=== PATIENT | female | born 1990 | race African-American/Black ===

== ENCOUNTER 2016-05-25 13:04 | Emergency (ER) | payer SELFPAY ==
[~2016-05-25] VITALS: Ht 167.6 cm; Wt 90.7 kg
[~2016-05-25 13:04] MED LIST: CALC200T3 PO; FERR-26 PO; HYDR-971 PO; OMEP20TA63 PO; ONDA4TAB7 PO
[2016-05-25 13:33] VITALS: BP 148/93
[2016-05-25] MEDS ORDERED: HYDR-971 PO (14:10)
[2016-05-25] MEDS ORDERED: NAPR500T3 PO (14:10)
--- NOTE | 2016-05-25 14:10 | PHYS DOC ---
Past Medical History Past Medical History: No Pertinent History Past Surgical History: , Tubal ligation Alcohol Use: None Drug Use: None Adult General Chief Complaint Chief Complaint: PAIN CONTROL HPI HPI Patient is a 25 year old female who presents with moderate right ankle and foot pain that began 4 days ago. Patient states she fainted and rolled her ankle. She states she was seen at [facility] had x-rays done which were negative, she states she was discharged with cum walker boot. She states she has an appointment with the orthopedic doctor on Tuesday. She states she is currently is experiencing more pain, she also ran out of her pain medication. Review of Systems Review of Systems Constitutional: Denies fever or chills [] Musculoskeletal: Left ankle and foot pain Integument: Denies rash or skin lesions []ack pain or join Neurologic: Denies headache, focal weakness or sensory changes [] Endocrine: Denies polyuria or polydipsia [] Allergies Allergies Allergies Coded Allergies Type Severity Reaction Last Updated Verified latex Allergy Intermediate 10/10/15 Yes Physical Exam Physical Exam Constitutional: Well developed, well nourished, no acute distress, non-toxic appearance. [] HENT: Normocephalic, atraumatic, bilateral external ears normal, oropharynx moist, no oral exudates, nose normal. [] Skin: Warm, dry, no erythema, no rash. [] Back: No tenderness, no CVA tenderness. [] Extremities: Left ankle and foot with no obvious deformity, trace amount of soft tissue swelling noted on the left lateral ankle and foot. Tenderness on palpation of the left lateral ankle. Full range of motion to the left ankle and foot. No pain or tenderness on the base of the fifth metatarsal of the navicular bone of the left foot. +2 left pedal pulse. Cap refill less than 2 seconds and left lower extremity. Sensation intact to the left lower extremity. Neurologic: Alert and oriented X 3, normal motor function, normal sensory function, no focal deficits noted. [] Psychologic: Affect normal, judgement normal, mood normal. [] Current Patient Data Vital Signs Vital Signs Date Time Temp Pulse Resp B/P Pulse Ox O2 Delivery O2 Flow Rate FiO2 05/25/16 13:33 97.9 98 18 100 Room Air 97.9 EKG EKG [] Radiology/Procedures Radiology/Procedures [] Course & Med Decision Making Course & Med Decision Making Pertinent Labs and Imaging studies reviewed. (See chart for details) Patient is in the ED with ongoing left foot and ankle pain after falling on Tuesday. She was already seen at [facility] and was discharged with sherwin barone. She has an appointment with the orthopedic doctor on Tuesday. She was instructed to continue icing and elevating the extremity. Follow-up with orthopedic doctors scheduled. Dragon Disclaimer Dragon Disclaimer This electronic medical record was generated, in whole or in part, using a voice recognition dictation system. Departure Departure Impression: Primary Impression: Ankle pain, left Additional Impression: Foot pain, left Disposition: HOME, SELF-CARE Condition: STABLE Referrals: NO PCP (PCP) Follow-up with the orthopedic doctor at [facility] as soon as possible Patient Instructions: Ankle Pain Additional Instructions: You were seen for ongoing left foot and ankle pain. We recommend you follow-up with orthopedic doctor as soon as you can. Ice and elevate the extremity. Scripts Naproxen 500 Mg Tablet1 Tab PO BID #60 TAB Ref 1 Prov:ELEONORA WILSON APRN 05/25/16 Hydrocodone/Apap 5-325 ([place] 5-325 Tablet)1 Each Tablet1-2 Tab PO Q4-6HRS #7 TAB Prov:ELEONORA WILSON APRN 05/25/16 Problem Qualifiers Primary Impression: Ankle pain, left Chronicity: acute Qualified Code: M25.572 - Pain in left ankle and joints of left foot ELEONORA WILSON APRN May 25, 2016 14:10
== END 2016-05-25 14:17 | disposition home or self-care (01) ==
LOC: ER 13:04
DX: M25.572 Pain in left ankle and joints of left foot (principal); Z91.040 Latex allergy status
CPT/HCPCS: 99283

== ENCOUNTER 2016-07-12 15:08 | Emergency (ER) | payer OTHER ==
[~2016-07-12] VITALS: Ht 167.6 cm; Wt 90.7 kg
[~2016-07-12 15:08] MED LIST changes: +NAPR500T3 PO
[2016-07-12] MEDS ORDERED: ALBUTEROL SULFATE 2.5 MG/3 ML NEBU. NEB ONE (15:45)
[2016-07-12] MEDS ORDERED: IV NORMAL SALINE 1000ML BAG 1,000 ML IV ONE (15:45)
[2016-07-12] MEDS ORDERED: ONDANSETRON PF 4 MG/2 ML VIAL. IV ONE (15:45)
[2016-07-12] MEDS ORDERED: KETOROLAC TROMETHAMINE 30 MG/ML INJ. IV ONE (15:45)
[2016-07-12] MEDS ORDERED: ASPIRIN ENTERIC COATED 325 MG TABLET.DR. PO ONE (15:45)
[2016-07-12] MEDS ORDERED: oxyCODONE/APAP 5/325 1 TAB TABLET PO ONE (15:45)
[2016-07-12] MEDS ORDERED: LIDO:MAALOX:DONNATAL 1:1:1 15 ML SINGLE DOSE SWSW ONE (15:45)
--- NOTE | 2016-07-12 15:45 | EKG ---
[facility] [address] [place] [address] Test Date: 2016-07-12 Test Time: 15:20:37 Pat Name: RACHEL BUCKLEY Department: Room: Gender: F Medical Claims Examiner: : 1990 Requested By: SCAR LANCASTER Order Number: [id number] Reading MD: Radha Morgan Measurements Intervals [place] Rate: 83 P: 34 MT: 176 QRS: 32 QRSD: 88 T: -2 QT: 348 QTc: 409 Interpretive Statements SINUS RHYTHM NORMAL EKG RI6.01 Unconfirmed report Compared to ECG 08/08/2012 14:26:30 Sinus tachycardia no longer present Electronically Signed On 07-15-2016 22:25:22 CDT by Radha Morgan
[2016-07-12 16:02] LABS: BASO # 0.1 x10^3/uL (0.0-0.2); BASO % 1 % (0-3); EOS % 3 % (0-3); HEMATOCRIT 31.4 % (36.0-47.0); HEMOGLOBIN 9.4 g/dL (12.0-15.5); LYMPH # 2.2 x10^3/uL (1.0-4.8); LYMPH % 26 % (24-48); MEAN CORPUSCULAR HEMOGLOBIN 21 pg (25-35); MEAN CORPUSCULAR HGB CONC 30 g/dL (31-37); MEAN CORPUSCULAR VOLUME 70 fL (79-100); MONO % 8 % (0-9); NEUT % 62 % (31-73); PLATELET COUNT 393 x10^3/uL (140-400); RED BLOOD COUNT 4.47 x10^6/uL (3.50-5.40); RED CELL DISTRIBUTION WIDTH 21.8 % (11.5-14.5); WHITE BLOOD COUNT 8.5 x10^3/uL (4.0-11.0)
--- NOTE | 2016-07-12 16:14 | RAD ---
Indication chest pain. A single view of the chest was obtained. Comparison is made to an examination 10/07/2015. The heart and pulmonary vessels are unremarkable. The mediastinum has a normal appearance. The lungs are clear of acute infiltrates. There is a small nodular opacity in the right upper lobe similar to the previous exam. Overall a significant change in the appearance of the chest compared to the prior study is not seen. IMPRESSION: No acute finding. No significant change
--- NOTE | 2016-07-12 16:22 | PHYS DOC ---
Past Medical History Past Medical History: No Pertinent History Past Surgical History: , Tubal ligation Additional Information: 0.5 PPD Alcohol Use: None Drug Use: None Adult General Chief Complaint Chief Complaint: CHEST WALL PAIN HPI HPI Patient is a 26 year old female presenting to the emergency department for evaluation of chest pain cough dizziness and not feeling well. She says that she has been coughing hard for the past 1-2 weeks however she is not coughing anything up. Patient says that since 4:00 this morning. Patient says it is sharp in her left chest raise to her left back and is associated with movements of her torso breaths and cough. She denies any prior history of DVT PE or estrogen use unilateral leg swelling or productive cough. She has no history of hypertension diabetes or high cholesterol but she does smoke cigarettes and says her father has a history of cardiac disease. Patient's Perc score is equal to 0 and her heart score is equal to 2 based offers factors and slightly abnormal EKG. Review of Systems Review of Systems Constitutional: Denies fever or chills [] Eyes: Denies change in visual acuity, redness, or eye pain [] HENT: Denies nasal congestion or sore throat [] Respiratory: + cough. No shortness of breath [] Cardiovascular: + CP GI: Denies abdominal pain, nausea, vomiting, bloody stools or diarrhea [] : Denies dysuria or hematuria [] Musculoskeletal: Denies back pain or joint pain [] Integument: Denies rash or skin lesions [] Neurologic: Denies headache, focal weakness. + dizziness Current Medications Current Medications Current Medications Medications (Trade) Dose Ordered Sig/[facility] Start Time Stop Time Status Last Admin Dose Admin Albuterol Sulfate (Ventolin Neb Soln) 2.5 mg 1X ONCE 07/12/16 15:45 07/12/16 15:46 DC 07/12/16 16:09 2.5 MG Aspirin (Ecotrin) 325 mg 1X ONCE 07/12/16 15:45 07/12/16 15:46 DC 07/12/16 15:54 325 MG Ketorolac Tromethamine (Toradol) 30 mg 1X ONCE 07/12/16 15:45 07/12/16 15:46 DC 07/12/16 16:04 30 MG Multi-Ingredient Mouthwash/Gargle (Gi Cocktail Single Dose) 15 ml 1X ONCE 07/12/16 15:45 07/12/16 15:46 DC 07/12/16 15:56 15 ML Ondansetron HCl (Zofran) 8 mg 1X ONCE 07/12/16 15:45 07/12/16 15:46 DC 07/12/16 16:01 8 MG Oxycodone/ Acetaminophen (Percocet 5/325) 1 tab 1X ONCE 07/12/16 15:45 07/12/16 15:46 DC 07/12/16 15:55 1 TAB Sodium Chloride 1,000 ml @ 1,000 mls/hr 1X ONCE 07/12/16 15:45 07/12/16 16:44 DC 07/12/16 15:57 1,000 MLS/HR Allergies Allergies Allergies Coded Allergies Type Severity Reaction Last Updated Verified latex Allergy Intermediate 10/10/15 Yes Physical Exam Physical Exam Constitutional: Well developed, well nourished, no acute distress, non-toxic appearance. [] HENT: Normocephalic, atraumatic, bilateral external ears normal, oropharynx moist, no oral exudates, nose normal. [] Eyes: PERRLA, EOMI, conjunctiva normal, no discharge. [] Neck: Normal range of motion, no tenderness, supple, no stridor. [] Cardiovascular:Heart rate regular rhythm, no murmur [] Lungs & Thorax: Bilateral breath sounds clear to auscultation with pain to palpation of left chest and left back Abdomen: Bowel sounds normal, soft, no tenderness, no masses, no pulsatile masses. [] Skin: Warm, dry, no erythema, no rash. [] Back: No tenderness, no CVA tenderness. [] Extremities: No tenderness, no cyanosis, no clubbing, ROM intact, no edema. [] Neurologic: Alert and oriented X 3, normal motor function, normal sensory function, no focal deficits noted. [] Current Patient Data Vital Signs Vital Signs Date Time Temp Pulse Resp B/P (MAP) Pulse Ox O2 Delivery O2 Flow Rate FiO2 07/12/16 16:11 Room Air 07/12/16 15:55 29 98 07/12/16 15:20 98.4 83 92/45 (61) 98.4 Lab Values Laboratory Tests Test 07/12/16 15:45 07/12/16 16:48 White Blood Count 8.5 x10^3/uL (4.0-11.0) Red Blood Count 4.47 x10^6/uL (3.50-5.40) Hemoglobin 9.4 g/dL (12.0-15.5) L Hematocrit 31.4 % (36.0-47.0) L Mean Corpuscular Volume 70 fL (79-100) L Mean Corpuscular Hemoglobin 21 pg (25-35) L Mean Corpuscular Hemoglobin Concent 30 g/dL (31-37) L Red Cell Distribution Width 21.8 % (11.5-14.5) H Platelet Count 393 x10^3/uL (140-400) Neutrophils (%) (Auto) 62 % (31-73) Lymphocytes (%) (Auto) 26 % (24-48) Monocytes (%) (Auto) 8 % (0-9) Eosinophils (%) (Auto) 3 % (0-3) Basophils (%) (Auto) 1 % (0-3) Neutrophils # (Auto) 5.3 x10^3uL (1.8-7.7) Lymphocytes # (Auto) 2.2 x10^3/uL (1.0-4.8) Monocytes # (Auto) 0.7 x10^3/uL (0.0-1.1) Eosinophils # (Auto) 0.2 x10^3/uL (0.0-0.7) Basophils # (Auto) 0.1 x10^3/uL (0.0-0.2) Platelet Estimate Pending Sodium Level 136 mmol/L (136-145) Potassium Level 4.0 mmol/L (3.5-5.1) Chloride Level 103 mmol/L (98-107) Carbon Dioxide Level 21 mmol/L (21-32) Anion Gap 12 (6-14) Blood Urea Nitrogen 11 mg/dL (7-20) Creatinine 1.1 mg/dL (0.6-1.0) H Estimated GFR (Cockcroft-Gault) 71.6 BUN/Creatinine Ratio 10 (6-20) Glucose Level 171 mg/dL (70-99) H Calcium Level 8.6 mg/dL (8.5-10.1) Magnesium Level 1.7 mg/dL (1.8-2.4) L Total Bilirubin 0.4 mg/dL (0.2-1.0) Aspartate Amino Transferase (AST) 26 U/L (15-37) Alanine Aminotransferase (ALT) 15 U/L (14-59) Alkaline Phosphatase 95 U/L (46-116) Creatine Kinase 249 U/L (26-192) H Troponin I Quantitative < 0.017 ng/mL (0.000-0.055) EV-Qpr-O-Type Natriuretic Peptide 97 pg/mL (0-124) Total Protein 7.2 g/dL (6.4-8.2) Albumin 3.3 g/dL (3.4-5.0) L Albumin/Globulin Ratio 0.8 (1.0-1.7) L Lipase 108 U/L (73-393) Urine Color Yellow Urine Clarity Clear Urine pH 6.5 Urine Specific [place] 1.015 Urine Protein 30 mg/dL (NEG-TRACE) Urine Glucose (UA) Negative mg/dL (NEG) Urine Ketones (Stick) Negative mg/dL (NEG) Urine Blood Negative (NEG) Urine Nitrite Negative (NEG) Urine Bilirubin Negative (NEG) Urine Urobilinogen Dipstick 0.2 mg/dL (0.2 mg/dL) Urine Leukocyte Esterase Moderate (NEG) Urine RBC 0 /HPF (0-2) Urine WBC 5-10 /HPF (0-4) Urine Squamous Epithelial Cells Mod /LPF Urine Bacteria Few /HPF (0-FEW) Urine Mucus Slight /LPF Laboratory Tests 07/12/16 15:45 Laboratory Tests 07/12/16 15:45 EKG EKG Sinus rhythm at 83 bpm with normal axis mild ST elevation noted in V2 with inverted T waves in leads V2 and V3 and V4. Radiology/Procedures Radiology/Procedures Indication chest pain. A single view of the chest was obtained. Comparison is made to an examination 10/07/2015. The heart and pulmonary vessels are unremarkable. The mediastinum has a normal appearance. The lungs are clear of acute infiltrates. There is a small nodular opacity in the right upper lobe similar to the previous exam. Overall a significant change in the appearance of the chest compared to the prior study is not seen. IMPRESSION: No acute finding. No significant change DICTATED and SIGNED BY: DELANEY LOUIS MD DATE: 07/12/16 3804 Course & Med Decision Making Course & Med Decision Making Patient presenting to the emergency department for evaluation of chest pain that is atypical for cardiac disease. She has no signs or symptoms of dissection and her perk score is equal to 0. Patient was given symptomatically treatment here and she said her pain is almost resolved and is feeling better and asking to go home. Given her heart score is equal to 2 and her EKG and troponin are negative more than 6 hours out from onset of symptoms she'll be discharged in stable condition with instructions not to exert herself take an aspirin daily and follow with a primary care provider and/or patient case coordinator within the next any 2 hours and come back to the ER sooner with any worsening pain fevers vomiting or other general concerns. Dragon Disclaimer Dragon Disclaimer This electronic medical record was generated, in whole or in part, using a voice recognition dictation system. Departure Departure Impression: Primary Impression: Chest pain Additional Impressions: Anemia Dizziness Disposition: HOME, SELF-CARE Condition: GOOD Referrals: DORA AU MD Patient Instructions: Pleurisy Additional Instructions: Take 400 mg of ibuprofen every 6 hours and the [place] for breakthrough pain. Follow with a primary care provider and/or the patient case coordinator within the next 72 hours and do not exert herself. Come back to the ER sooner with any worsening pain shortness of breath or other general concerns. Scripts Ferrous Sulfate (FERROUS SULFATE) 325 Mg Tablet 1 TAB PO BID, #60 TAB 3 Refills Prov: SCAR LANCASTER DO 07/12/16 Hydrocodone/Apap 5-325 ([place] 5-325 TABLET) 1 Each Tablet 1 TAB PO PRN Q6HRS Y for PAIN, #14 TAB 0 Refills Prov: SCAR LANCASTER DO 07/12/16 Albuterol Sulfate (PROAIR HFA INHALER) 8.5 Gm Hfa.aer.ad 1 PUFF INH Q4HRS Y for SHORTNESS OF BREATH, #1 INHALER 0 Refills Prov: SCAR LANCASTER DO 07/12/16 Problem Qualifiers Primary Impression: Chest pain Chest pain type: chest pain on breathing Qualified Codes: R07.1 - Chest pain on breathing SCAR LANCASTER DO Jul 12, 2016 16:22
[2016-07-12 16:35] LABS: CALCIUM 8.6 mg/dL (8.5-10.1); CREATININE 1.1 mg/dL (0.6-1.0); GFR 71.6
[2016-07-12 16:40] LABS: ALBUMIN 3.3 g/dL (3.4-5.0); ALBUMIN/GLOBULIN RATIO 0.8 (1.0-1.7); MAGNESIUM 1.7 mg/dL (1.8-2.4); TOTAL BILIRUBIN 0.4 mg/dL (0.2-1.0); TOTAL PROTEIN 7.2 g/dL (6.4-8.2)
[2016-07-12 16:56] LABS: BILIRUBIN,URINE NEGATIVE (NEG); GLUCOSE,URINE NEGATIVE (NEG); NITRITE,URINE NEGATIVE (NEG); PH,URINE 6.5; PROTEIN,URINE 30 mg/dL (NEG-TRACE); UROBILINOGEN,URINE 0.2 mg/dL (0.2 mg/dL)
[2016-07-12 17:08] LABS: BACTERIA,URINE FEW /HPF (0-FEW); RBC,URINE 0 /HPF (0-2); SQUAMOUS EPITHELIAL CELL,UR MOD /LPF
[2016-07-12] MEDS ORDERED: HYDR-971 PO (17:30)
[2016-07-12] MEDS ORDERED: PROAIR HFA8.5 GM INH (17:30)
[2016-07-12] MEDS ORDERED: FERR-26 PO (17:30)
[2016-07-12 18:04] LABS: PLT ESTIMATE INCREASED (ADEQUATE)
[2016-07-12 18:05] LABS: ANISOCYTOSIS MOD; HYPOCHROMIA MARKED; MICROCYTOSIS MOD; POIKILOCYTOSIS MOD
[2016-07-12 18:06] LABS: OVALOCYTES FEW
[2016-07-12] MEDS ORDERED: fentaNYL PF VIAL 100 MCG/2 ML VIAL IV ONE (18:30)
[2016-07-12] MEDS ORDERED: PROMETHAZINE 12.5 MG in IV NORMAL SALINE 50ML 50 ML IV PRN (18:30)
[2016-07-12 18:50] VITALS: BP 133/82
--- NOTE | 2016-07-14 16:32 | VNOTE ---
CALL BACK NOTE CALL BACK Microbiology 07/12/16 Urine Culture - Final, Complete 07/12/16 Urine Culture Result 1 (ESTEBAN) - Final, Complete 07/12/16 Antimicrobic Susceptibility - Final, Complete attempted to contact patient wtih the number provided to registration in regards to urine sample positive for E Coli. Patient was not treated for UTI. Phone number states that it has been disconnected or no longer in service. Certified letter will be sent to address provided to registration. COLLEEN RAMIREZ SAMPLE PREP TECHNICIAN Jul 14, 2016 16:32
== END 2016-07-12 19:05 | disposition home or self-care (01) ==
LOC: ER 15:08
DX: R07.89 Other chest pain (principal); D64.9 Anemia, unspecified; R42 Dizziness and giddiness; R05 Cough; F17.210 Nicotine dependence, cigarettes, uncomplicated; Z98.890 Other specified postprocedural states; Z98.51 Tubal ligation status; Z91.040 Latex allergy status
CPT/HCPCS: 36415; 71010; 80053; 81001; 82550; 83690; 83735; 83880; 84484; 85007; 85027; 87086; 87186; 93005; 94640; 96365; 96375; 99285; J1885; J2405; J2550; J3010; J7030

== ENCOUNTER 2016-11-03 15:32 | Emergency (ER) | payer OTHER ==
[~2016-11-03] VITALS: Ht 167.6 cm; Wt 99.8 kg
[~2016-11-03 15:32] MED LIST changes: +PROAIR HFA8.5 GM INH
[2016-11-03 15:42] VITALS: BP 142/84
[2016-11-03] MEDS ORDERED: AMOX500C PO (15:53)
[2016-11-03] MEDS ORDERED: TRAM-48 PO (15:53)
--- NOTE | 2016-11-03 15:54 | PHYS DOC ---
Past Medical History Past Medical History: No Pertinent History Past Surgical History: , Tubal ligation Alcohol Use: None Drug Use: None Adult General Chief Complaint Chief Complaint: DENTAL PROBLEM HPI HPI Patient is a 26 year old female presents to the emergency department with a history of dental issues. Patient states she is having dental reconstruction for dentures. She states she had an appointment on 10/26 in which she had missed her appointment. She states last night around 3 AM seh developed severe pain. She states she had taken Tylenol and Aleve without pain. She states she has increase pain to the left lower tooth when air hits the tooth. She states she had to miss work today because of the pain. She also states she has driven herself to the emergency department. Review of Systems Review of Systems Constitutional: Denies fever or chills [] Eyes: Denies change in visual acuity, redness, or eye pain [] HENT: Denies nasal congestion or sore throat. C/o dental pain, left lower tooth Respiratory: Denies cough or shortness of breath [] Cardiovascular: No additional information not addressed in HPI [] GI: Denies abdominal pain, nausea, vomiting, bloody stools or diarrhea [] : Denies dysuria or hematuria [] Musculoskeletal: Denies back pain or joint pain [] Integument: Denies rash or skin lesions [] Neurologic: Denies headache, focal weakness or sensory changes [] Endocrine: Denies polyuria or polydipsia [] Allergies Allergies Allergies Coded Allergies Type Severity Reaction Last Updated Verified latex Allergy Intermediate 10/10/15 Yes Physical Exam Physical Exam Constitutional: Well developed, well nourished, no acute distress, non-toxic appearance. [] HENT: Normocephalic, atraumatic, bilateral external ears normal, oropharynx moist, no oral exudates, nose normal. Patient with only one tooth noted to the approximate #20 Tooth appears to have a cavity that has been filled. Minimal redness noted around the tooth. Bilateral TM normal. Eyes: PERRLA, EOMI, conjunctiva normal, no discharge. [] Neck: Normal range of motion, no tenderness, supple, no stridor. [] Cardiovascular: [place] warm and dry Lungs & Thorax: no respiratory distress Skin: Warm, dry, no erythema, no rash. [] Extremities: No tenderness, no cyanosis, no clubbing, ROM intact, no edema. [] Neurologic: Alert and oriented X 3, normal motor function, normal sensory function, no focal deficits noted. [] Psychologic: Affect normal, judgement normal, mood normal. [] Current Patient Data Vital Signs Vital Signs Date Time Temp Pulse Resp B/P (MAP) Pulse Ox O2 Delivery O2 Flow Rate FiO2 11/03/16 15:42 98.2 88 20 100 Room Air 98.2 EKG EKG [] Radiology/Procedures Radiology/Procedures [] Course & Med Decision Making Course & Med Decision Making Pertinent Labs and Imaging studies reviewed. (See chart for details) Patient was provided discharge instructions. She was recommended to use dental wax around the tooth. She was provided with ultram and amoxicillin as discharge. She was not able to obtain pain medication here in the emergency department as she had driven herself to the emergency department. Patient was encouraged to followup with dentist on Tuesday in which she states she has an appointment. Patient discharged home in stable condition. All questions and concerns answered at patients beside. [] Dragon Disclaimer Dragon Disclaimer This electronic medical record was generated, in whole or in part, using a voice recognition dictation system. Departure Departure Impression: Primary Impression: Dentalgia Disposition: HOME, SELF-CARE Condition: STABLE Referrals: NO PCP (PCP) Patient Instructions: Dental Pain, [id number] Additional Instructions: Activity as tolerated Tylenol every 6 hours for pain and discomfort Aleve as directed by manufacture Medication as prescribed Ultram will cause drowsiness do not take if you need to be alert and oriented Warm salt water mouth rinses 4 times a day Dental wax placed around the tooth will also help with the pain Keep your appointment you have with your dentist on Tuesday Return to emergency department as needed for signs and symptom that become worse. Scripts Tramadol Hcl (ULTRAM) 50 Mg Tablet 1 TAB PO Q6HRS, #6 TAB Prov: COLLEEN RAMIREZ AUTOMOTIVE PARTS COORDINATOR 11/03/16 Amoxicillin (AMOXICILLIN) 500 Mg Capsule 1 CAP PO QID, #40 CAP Prov: COLLEEN RAMIREZ AUTOMOTIVE PARTS COORDINATOR 11/03/16 COLLEEN RAMIREZ APRN Nov 03, 2016 15:54
== END 2016-11-03 15:58 | disposition home or self-care (01) ==
LOC: ER 15:32
DX: K08.89 Other specified disorders of teeth and supporting structures (principal); Z91.040 Latex allergy status
CPT/HCPCS: 99283

== ENCOUNTER 2016-12-04 15:45 | Emergency (ER) | payer OTHER ==
[~2016-12-04] VITALS: Ht 167.6 cm; Wt 90.7 kg
[~2016-12-04 15:45] MED LIST changes: +AMOX500C PO; -NAPR500T3 PO; +NAPR500T4 PO; +TRAM-48 PO
[2016-12-04] MEDS ORDERED: TRAM50TA PO (15:57)
--- NOTE | 2016-12-04 15:58 | PHYS DOC ---
Past Medical History Past Medical History: No Pertinent History Past Surgical History: , Tubal ligation Alcohol Use: None Drug Use: None Adult General Chief Complaint Chief Complaint: FINGER INJURY HPI HPI Patient is a 26 year old female presents to the ED complaining of finger injury x 1 day. States last night she was getting out of the car and got her left index finger stuck in the door. Describes the pain as sharp. Rates the pain as 8/10. Abrasion to finger also. Tetanus up to date. Denies fever, swelling, nail injury, headache, head/neck injury or bleeding. Review of Systems Review of Systems Constitutional: Denies fever or chills [] Eyes: Denies change in visual acuity, redness, or eye pain [] HENT: Denies nasal congestion or sore throat [] Respiratory: Denies cough or shortness of breath [] Cardiovascular: No additional information not addressed in HPI [] GI: Denies abdominal pain, nausea, vomiting, bloody stools or diarrhea [] : Denies dysuria or hematuria [] Musculoskeletal: Denies back pain. Complains of finger pain. [] Integument: Denies rash or skin lesions [] Neurologic: Denies headache, focal weakness or sensory changes [] Endocrine: Denies polyuria or polydipsia [] Current Medications Current Medications Current Medications Medications (Trade) Dose Ordered Sig/Zaina Start Time Stop Time Status Last Admin Dose Admin Ibuprofen (Motrin) 800 mg 1X ONCE 12/04/16 16:00 12/04/16 16:01 DC 12/04/16 16:15 800 MG Labetalol HCl (Trandate) 100 mg BID 12/04/16 16:00 12/04/16 16:44 DC 12/04/16 16:14 100 MG Allergies Allergies Allergies Coded Allergies Type Severity Reaction Last Updated Verified latex Allergy Intermediate 10/10/15 Yes Physical Exam Physical Exam Constitutional: Well developed, well nourished, no acute distress, non-toxic appearance. [] HENT: Normocephalic, atraumatic, bilateral external ears normal, oropharynx moist, no oral exudates, nose normal. [] Eyes: PERRLA, EOMI, conjunctiva normal, no discharge. [] Neck: Normal range of motion, no tenderness, supple, no stridor. [] Cardiovascular:Heart rate regular rhythm, no murmur [] Lungs & Thorax: Bilateral breath sounds clear to auscultation [] Abdomen: Bowel sounds normal, soft, no tenderness, no masses, no pulsatile masses. [] Skin: Warm, dry, no erythema, no rash. [] Back: No tenderness, no CVA tenderness. [] Extremities: LEFT 2ND INDEX FINGER TENDERNESS AND ABRASION TO DIP REGION. no cyanosis, no clubbing, ROM intact, no edema. [] Neurologic: Alert and oriented X 3, normal motor function, normal sensory function, no focal deficits noted. [] Psychologic: Affect normal, judgement normal, mood normal. [] Current Patient Data Vital Signs Vital Signs Date Time Temp Pulse Resp B/P (MAP) Pulse Ox O2 Delivery O2 Flow Rate FiO2 12/04/16 16:40 95 16 145/89 (107) 100 Room Air 12/04/16 15:53 98.6 98.6 EKG EKG [] Radiology/Procedures Radiology/Procedures PROCEDURE: FINGER(S) LEFT FINGER(S) LEFT Clinical Indication: injury Comparison: None. Findings: Acute, minimally displaced, mildly comminuted fracture of the tuft of the second digit. The joint spaces are maintained. Bony mineralization is normal for the patient's age. No significant soft tissue abnormality. No radiopaque foreign body. IMPRESSION: Acute, minimally displaced, mildly comminuted fracture of the tuft of the second digit.[] Course & Med Decision Making Course & Med Decision Making Pertinent Labs and Imaging studies reviewed. (See chart for details) []Discussed imaging with patient. No open fx. No nail injury. Splint placed. NV intact post placement. Discussed symptomatic treatment. Discussed reasons to return to the ED. Patient understands and agrees with plan. BP elevated on arrival. States she has been out of her BP medications, Labetalol 100mg BID. Denies any symptoms at this time. Patient given Labetalol in ED. BP improved. Discussed the importance of BP control and risks if patient does not. States she is going to follow-up with her PCP at [facility] this week. Dragon Disclaimer Dragon Disclaimer This electronic medical record was generated, in whole or in part, using a voice recognition dictation system. Departure Departure Impression: Primary Impression: Finger injury Additional Impression: Finger fracture Disposition: 01 HOME, SELF-CARE Condition: STABLE Referrals: NO PCP (PCP) CARMINE GANDHI MD Patient Instructions: Crush Injury, Fingers or Toes Scripts Labetalol Hcl (LABETALOL HCL) 100 Mg Tablet 1 TAB PO BID, #30 TAB 5 Refills Prov: SOLE VALENZUELA 12/04/16 Cephalexin (KEFLEX) 500 Mg Capsule 1 CAP PO TID, #21 CAP Prov: SOLE VALENZUELA 12/04/16 Tramadol Hcl (TRAMADOL HCL) 50 Mg Tablet 1 TAB PO PRN Q6HRS, #12 TAB Prov: SOLE VALENZUELA 12/04/16 Problem Qualifiers SOLE VALENZUELA Dec 04, 2016 15:58
[2016-12-04] MEDS ORDERED: LABETALOL HCL 100 MG TABLET. PO SCH (16:00)
[2016-12-04] MEDS ORDERED: IBUPROFEN 800 MG TABLET. PO ONE (16:00)
[2016-12-04] MEDS ORDERED: CEPH-264 PO (16:33)
[2016-12-04 16:40] VITALS: BP 145/89
[2016-12-04] MEDS ORDERED: LABE100T3 PO (16:40)
--- NOTE | 2016-12-05 08:46 | RAD ---
FINGER(S) LEFT Clinical Indication: injury Comparison: None. Findings: Acute, minimally displaced, mildly comminuted fracture of the tuft of the second digit. The joint spaces are maintained. Bony mineralization is normal for the patient's age. No significant soft tissue abnormality. No radiopaque foreign body. IMPRESSION: Acute, minimally displaced, mildly comminuted fracture of the tuft of the second digit.
== END 2016-12-04 16:44 | disposition home or self-care (01) ==
LOC: ER 15:45
DX: S62.601A Fracture of unspecified phalanx of left index finger, initial encounter for closed fracture (principal); Z91.040 Latex allergy status; W23.0XXA Caught, crushed, jammed, or pinched between moving objects, initial encounter; Y93.89 Activity, other specified; Y99.8 Other external cause status; Y92.89 Other specified places as the place of occurrence of the external cause
CPT/HCPCS: 29130; 73140; 99284-25

== ENCOUNTER 2016-12-06 18:11 | Emergency (ER) | payer OTHER ==
[~2016-12-06] VITALS: Ht 167.6 cm; Wt 90.7 kg
[~2016-12-06 18:11] MED LIST changes: +CEPH-264 PO; +LABE100T3 PO; +TRAM50TA PO
[2016-12-06 18:20] VITALS: BP 166/113
--- NOTE | 2016-12-06 18:56 | PHYS DOC ---
Past Medical History Past Medical History: No Pertinent History Past Surgical History: , Tubal ligation Alcohol Use: None Drug Use: None Adult General Chief Complaint Chief Complaint: FINGER INJURY HPI HPI Patient is a 26 year old female presents to the emergency department stating that she was seen here 2 days ago for a injury to the second finger left hand after shutting it in a car door. Patient did have a comminuted fracture as noted by Anup LYON and radiologist. Patient had been placed in aluminum splint and sent home with a tramadol prescription. Patient also had a prescription for labetalol in which she did not get filled. Patient presents today stating that she has been removing the splint to take a shower. She states that she did this last night. She states that she did have increased pain while showering however when she put the splint on the seemed on it helped a little bit with the pain and discomfort. Patient states as the day has progressed the pain is increasingly gotten worse. She's taken tramadol twice today and ibuprofen 800 mg once. She states that she's been trying to keep the finger elevated however has not placed ice packs on the site. Patient is requesting a repeat x-ray as she feels that the pain is not appropriate for her fracture. Patient denies any injury or trauma to the finger since the incident. Review of Systems Review of Systems Constitutional: Denies fever or chills [] Eyes: Denies change in visual acuity, redness, or eye pain [] HENT: Denies nasal congestion or sore throat [] Respiratory: Denies cough or shortness of breath [] Cardiovascular: No additional information not addressed in HPI [] GI: Denies abdominal pain, nausea, vomiting, bloody stools or diarrhea [] : Denies dysuria or hematuria [] Musculoskeletal: Denies back pain. Increased pain to the second finger left hand Integument: Denies rash or skin lesions [] Neurologic: Denies headache, focal weakness or sensory changes [] Endocrine: Denies polyuria or polydipsia [] Current Medications Current Medications Current Medications Medications (Trade) Dose Ordered Sig/Zaina Start Time Stop Time Status Last Admin Dose Admin Acetaminophen/ Hydrocodone Bitart (Lortab 5/325) 1 tab 1X ONCE 12/06/16 20:00 12/06/16 20:01 DC 12/06/16 19:53 1 TAB Allergies Allergies Allergies Coded Allergies Type Severity Reaction Last Updated Verified latex Allergy Intermediate 10/10/15 Yes Physical Exam Physical Exam Constitutional: Well developed, well nourished, no acute distress, non-toxic appearance. [] HENT: Normocephalic, atraumatic, bilateral external ears normal, oropharynx moist, no oral exudates, nose normal. [] Eyes: PERRLA, EOMI, conjunctiva normal, no discharge. [] Neck: Normal range of motion, no tenderness, supple, no stridor. [] Cardiovascular:Heart rate regular rhythm] Lungs & Thorax: No respiratory distress noted Skin: Warm, dry, no erythema, no rash. [] Back: No tenderness, no CVA tenderness. [] Extremities: No tenderness, no cyanosis, no clubbing, ROM intact, no edema. Tenderness noted to the left second finger. Neurologic: Alert and oriented X 3, normal motor function, normal sensory function, no focal deficits noted. [] Psychologic: Affect normal, judgement normal, mood normal. [] Current Patient Data Vital Signs Vital Signs Date Time Temp Pulse Resp B/P (MAP) Pulse Ox O2 Delivery O2 Flow Rate FiO2 12/06/16 19:53 18 99 Room Air 12/06/16 18:20 97.8 116 97.8 EKG EKG [] Radiology/Procedures Radiology/Procedures [] Course & Med Decision Making Course & Med Decision Making Pertinent Labs and Imaging studies reviewed. (See chart for details) Dr. Chavez has seen no change in the x-ray findings from 2 days ago. Patient will be recommended to continue home medications. She'll be provided with more tramadol as she states that she is completely out. Recommended ibuprofen 800 mg every 6 hours will provide her with a prescription for ibuprofen as well. Patient was instructed to keep the splint in place. She states that she does have an appointment with orthopedic on . Recommended ice packs on 20 minutes off 20 minutes several times a day elevation as much as possible. Patient was provided with signs and symptoms to return back to the emergency department. All questions and concerns been answered at the bedside. K trajeffy noted that patient had received norco on a monthly basis from different providers, anywhere from 12-[address] Chavez regards to pain control. He recommended that she can continue with the Ultram and ibuprofen 800 mg every 6 hours. Patient states she is out of Tramadol. She was was provided with prescription for Ibuprofen and tramadol. Patient was also provided with her prescription for labetol in which was provided to her 2 days ago, recommended that she have it filled for her BP was elevated here in the emergency department. Patient also states she has been out of her BP medications for some time. Patient appears to be very noncompliant as she has removed the splint at home to shower. She does state she was informed not to remove the splint. After patient had unwrapped the splint for re-evaluation, patient had decided to throw the splint in the trash. Patient continues to carry on in the department pain control stating the pain is not taken care of with a tramadol. However it has been 2 days since she's been here to the emergency department for the incident. Patient had driven herself here to the emergency department therefore hydrocodone was not provided here in the emergency department. Patient states that she is going to have somebody come and pick her upin the Emergency department so she can have the hydrocodone. Patient states she will not have the splint placed on her finger until she gets her pain medication. [address] Patients ride has arrived. Patient is requesting the name of the provider that cared for her today as she does not feel she has been provided with enough pain medication and is upset with not having her pain medication changed. Patient was discharged home in stable condition with family member who will be providing her with a ride home. Patient has requested work noted for tomorrow as she is now stating that she has a followup appointment with orthopedic on Tuesday. [] Dragon Disclaimer Dragon Disclaimer This electronic medical record was generated, in whole or in part, using a voice recognition dictation system. Departure Departure Impression: Primary Impression: Inadequate pain control Additional Impressions: Noncompliance Closed fracture of tuft of distal phalanx of finger Disposition: HOME, SELF-CARE Condition: STABLE Referrals: UNKNOWN PCP NAME (PCP) Patient Instructions: Finger Fracture-Brief, Splint Care, [id number] Additional Instructions: Activity as tolerated. Ice packs on 20 minutes off 20 minutes several times a day. Elevation as much as possible. Do NOT remove the splint until you follow-up with orthopedic. Tramadol for pain and discomfort. This medication will cause drowsiness do not take any be alert and oriented. Ibuprofen 800 mg every 6 hours for pain and discomfort. Keep your follow-up appointment that you have on with orthopedic doctor. Return back to emergency prior signs symptoms of become worse. Scripts Tramadol Hcl (ULTRAM) 50 Mg Tablet 1 TAB PO Q6HRS, #10 TAB Prov: COLLEEN RAMIREZ APRN 12/06/16 Ibuprofen (IBUPROFEN) 800 Mg Tablet 800 MG PO PRN Q6HRS Y for INFLAMMATION, #30 TAB Prov: COLLEEN RAMIREZ APRN 12/06/16 Problem Qualifiers COLLEEN RAMIREZ APRN Dec 06, 2016 18:55
[2016-12-06] MEDS ORDERED: HYDROcodone/APAP 5/325MG 1 TAB TABLET PO ONE ×2 (19:30→20:00)
[2016-12-06] MEDS ORDERED: IBUP-1060 PO (19:38)
[2016-12-06] MEDS ORDERED: TRAM-48 PO (19:38)
--- NOTE | 2016-12-07 07:48 | RAD ---
Indication injury, pain. An AP view of the left hand as well as oblique and lateral images targeted to the index finger were obtained. No acute bony abnormality is seen. Some slight soft tissue swelling of the index finger is noted
== END 2016-12-06 19:57 | disposition home or self-care (01) ==
LOC: ER 18:11
DX: S62.631A Displaced fracture of distal phalanx of left index finger, initial encounter for closed fracture (principal); Z91.040 Latex allergy status; Z91.14 Patient's other noncompliance with medication regimen; W23.0XXA Caught, crushed, jammed, or pinched between moving objects, initial encounter; Y93.89 Activity, other specified; Y99.8 Other external cause status; Y92.89 Other specified places as the place of occurrence of the external cause
CPT/HCPCS: 29130; 73140; 99284-25

== ENCOUNTER 2017-03-05 19:35 | Emergency (ER) | payer OTHER ==
[2017-03-05 19:57] LABS: ADD MAN DIFF? NO
[2017-03-05 19:58] LABS: BASO # 0.1 x10^3/uL (0.0-0.2); BASO % 1 % (0-3); EOS # 0.2 x10^3/uL (0.0-0.7); EOS % 1 % (0-3); HEMATOCRIT 31.8 % (36.0-47.0); HEMOGLOBIN 9.8 g/dL (12.0-15.5); LYMPH # 3.5 x10^3/uL (1.0-4.8); LYMPH % 24 % (24-48); MEAN CORPUSCULAR HEMOGLOBIN 22 pg (25-35); MEAN CORPUSCULAR HGB CONC 31 g/dL (31-37); MEAN CORPUSCULAR VOLUME 72 fL (79-100); MONO # 1.1 x10^3/uL (0.0-1.1); MONO % 8 % (0-9); NEUT # 9.7 x10^3uL (1.8-7.7); NEUT % 66 % (31-73); PLATELET COUNT 399 x10^3/uL (140-400); RED CELL DISTRIBUTION WIDTH 19.6 % (11.5-14.5); WHITE BLOOD COUNT 14.7 x10^3/uL (4.0-11.0)
[2017-03-05 20:12] LABS: NEG OBC SER NEG; POS OBC SER POS; PREG TEST PT QUAL NEGATIVE (NEG)
[2017-03-05 20:13] LABS: URINE HCG POC HCG NEGATIVE (Negative)
[2017-03-05 20:24] LABS: ANISOCYTOSIS SLIGHT; HYPOCHROMIA MARKED; MICROCYTOSIS MARKED; PLT ESTIMATE ADEQUATE (ADEQUATE); POLYCHROMASIA SLIGHT
[2017-03-05] MEDS: INSULIN REGULAR 100 UNIT/ML 10ML VIAL. SQ ×2 (20:38)
[2017-03-05 20:48] LABS: ANION GAP 11 (6-14); BLOOD UREA NITROGEN 8 mg/dL (7-20); BUN/CREATININE RATIO 8 (6-20); CALCIUM 9.1 mg/dL (8.5-10.1); CARBON DIOXIDE 25 mmol/L (21-32); CHLORIDE 101 mmol/L (98-107); GFR 79.9; GLUCOSE 145 mg/dL (70-99); SODIUM 137 mmol/L (136-145)
[2017-03-05 20:54] LABS: ALBUMIN 3.9 g/dL (3.4-5.0); ALBUMIN/GLOBULIN RATIO 0.9 (1.0-1.7); ALK PHOS 93 U/L (46-116); ALT (SGPT) 19 U/L (14-59); AST (SGOT) 23 U/L (15-37); TOTAL BILIRUBIN 0.6 mg/dL (0.2-1.0); TOTAL PROTEIN 8.4 g/dL (6.4-8.2)
[2017-03-05] MEDS: METOCLOPRAMIDE HCL 10 MG/2 ML VIAL. IV ×2 (21:04)
[2017-03-05] MEDS: diphenhydrAMINE 50 MG/ML VIAL IVP ×2 (21:04)
[2017-03-05] MEDS: PROCHLORPERAZINE 10 MG/2 ML VIAL. IV ×2 (21:04)
[2017-03-05] MEDS: IV NORMAL SALINE 1000ML BAG 1,000 ML IV ×2 (21:04)
[2017-03-05] MEDS: POTASSIUM CHLORIDE 20 MEQ TABLET.ER. PO ×2 (21:40)
[2017-03-05 22:05] LABS: POC GLUCOSE 160 mg/dL (70-99)
== END 2017-03-05 22:30 | disposition home or self-care (01) ==
LOC: ER 19:35
DX: R51 Headache (principal); E87.6 Hypokalemia; R55 Syncope and collapse; G43.909 Migraine, unspecified, not intractable, without status migrainosus; Z91.040 Latex allergy status
CPT/HCPCS: 36415; 70450; 80053; 81025; 82962; 84703; 85025; 93005; 96361; 96374; 96375; 99285-25; J0780; J1200; J2765; J7030

== ENCOUNTER 2018-01-18 11:24 | Emergency (ER) | payer OTHER ==
[~2018-01-18] VITALS: Ht 167.6 cm; Wt 99.8 kg
[~2018-01-18 11:24] MED LIST changes: -FERR-26 PO; +FERR325T14 PO; +HYDR-3164 PO; -HYDR-971 PO; +IBUP-1060 PO; -LABE100T3 PO; +LABE100T5 PO; +NAPR-514 PO; -NAPR500T4 PO
[2018-01-18 11:48] VITALS: BP 165/111
[2018-01-18] MEDS: NAPROXEN 500 MG TABLET PO STA (12:12)
--- NOTE | 2018-01-18 12:31 | RAD ---
THREE VIEWS LEFT FINGER Clinical History: PT HURT FINGER AT WORK YESTERDAY. PAIN TO LT 2ND FINGER Technique: AP view of the hand, as well as lateral and oblique collimated views of the index finger were obtained. Comparison: Left finger, 3 views, December 06, 2016. Findings: There is no acute fracture or dislocation. There is no radiopaque foreign body. The soft tissues are normal. Joint spaces are maintained. The mineralization is normal. IMPRESSION: No acute fracture. Electronically signed by: Akbar Meng MD (01/18/2018 12:27 PM) [id number]
[2018-01-18] MEDS ORDERED: NAPR-514 PO (12:41)
--- NOTE | 2018-01-18 12:42 | PHYS DOC ---
Past Medical History Past Medical History: Hypertension Past Surgical History: Additional Past Surgical Histo: 4 Alcohol Use: Rarely Drug Use: None Adult General Chief Complaint Chief Complaint: FINGER INJURY HPI HPI Patient is a 27 year old AA female who presents to the emergency room with complaints of left index finger pain. Patient states that 2 days ago work her finger got stuck in the break of a wheelchair. Since the injury the finger has been tender to touch and the patient has experienced pain with movement of her finger. She states that she has been taking Tylenol and ibuprofen at home with minimal relief of her symptoms. Currently she rates her pain as a 7 out of 10 on pain scale. She has not taken anything since last night for relief of her pain. Review of Systems Review of Systems Constitutional: Denies fever or chills [] Musculoskeletal: see HPI Integument: Denies rash or skin lesions [] Neurologic: Denies headache, focal weakness or sensory changes [] Complete systems were reviewed and found to be within normal limits, except as documented in this note. Current Medications Current Medications Current Medications Medications (Trade) Dose Ordered Sig/Zaina Start Time Stop Time Status Last Admin Dose Admin Naproxen (Naprosyn) 500 mg 1X STAT 01/18/18 12:05 01/18/18 12:08 DC 01/18/18 12:12 500 MG Allergies Allergies Allergies Coded Allergies Type Severity Reaction Last Updated Verified latex Allergy Intermediate 10/10/15 Yes Physical Exam Physical Exam Constitutional: Well developed, well nourished, no acute distress, non-toxic appearance, obese. [] HENT: Normocephalic, atraumatic, bilateral external ears normal, nose normal. [] Eyes: conjunctiva normal, no discharge. [] Skin: Warm, dry, no erythema, no rash. [] Extremities: Tenderness to palpation of left index finger between the PIP and MCP, no cyanosis, no clubbing, ROM intact, no edema. [] Neurologic: Alert and oriented X 3, normal motor function, normal sensory function, no focal deficits noted. [] Psychologic: Affect normal, judgement normal, mood normal. [] Current Patient Data Vital Signs Vital Signs Date Time Temp Pulse Resp B/P (MAP) Pulse Ox O2 Delivery O2 Flow Rate FiO2 01/18/18 11:48 98.3 112 16 165/111 (129) 99 Room Air 98.3 EKG EKG [] Radiology/Procedures Radiology/Procedures PROCEDURE: FINGER(S) LEFT THREE VIEWS LEFT FINGER Clinical History: PT HURT FINGER AT WORK YESTERDAY. PAIN TO LT 2ND FINGER Technique: AP view of the hand, as well as lateral and oblique collimated views of the index finger were obtained. Comparison: Left finger, 3 views, December 06, 2016. Findings: There is no acute fracture or dislocation. There is no radiopaque foreign body. The soft tissues are normal. Joint spaces are maintained. The mineralization is normal. IMPRESSION: No acute fracture.[] Course & Med Decision Making Course & Med Decision Making Pertinent Labs and Imaging studies reviewed. (See chart for details) dx: Left index finger contusion, medication refill. X-ray of left index finger was negative for any acute fracture or dislocation. Patient was noted to have high blood pressure 1 emergency department. She reported being out of her labetalol that she takes twice daily for hypertension. Prescription written for labetalol as requested by patient and also written for naproxen for pain. Was instructed to follow-up with her primary care doctor regarding her blood pressure and for future refills of her medication. Return to the emergency room if symptoms worsen. Patient verbalized an understanding of home care, medications, follow-up, and return to ED instructions and was in agreement with the plan of care. [] Staff Physician Addendum: I was working in the ER during the course of this patient's visit. I was available for consultation as needed, but I was not directly involved in the care of this patient. Dragon Disclaimer Dragon Disclaimer This electronic medical record was generated, in whole or in part, using a voice recognition dictation system. Departure Departure Impression: Primary Impression: Finger contusion Additional Impression: Medication refill Disposition: HOME, SELF-CARE Condition: STABLE Referrals: NO PCP (PCP) Patient Instructions: Contusion, [id number] Additional Instructions: Fill prescription(s) and use as directed. Recommend application of ice, elevation, and rest of affected extremity. Wear the splint that was placed for relief of discomfort. Follow up with your primary care doctor if symptoms persist. Return to the ER if your symptoms worsen. Scripts Labetalol Hcl (LABETALOL HCL) 100 Mg Tablet 1 TAB PO BID, #60 TAB 0 Refills Prov: BORIS DORSEY APRN 01/18/18 Naproxen (NAPROXEN) 500 Mg Tablet 500 MG PO BID PRN for PAIN for 7 Days, #14 TAB 0 Refills Prov: BORIS DORSEY APRN 01/18/18 Problem Qualifiers Primary Impression: Finger contusion Encounter type: initial encounter Finger: index finger Damage to nail status: without damage Laterality: left Qualified Codes: S60.022A - Contusion of left index finger without damage to nail, initial encounter BORIS DORSEY APRN Jan 18, 2018 12:42 TRISHA PAGE MD Jan 19, 2018 06:14
[2018-01-18] MEDS ORDERED: LABE100T5 PO (12:54)
== END 2018-01-18 13:05 | disposition home or self-care (01) ==
LOC: ER 11:24
DX: S60.022A Contusion of left index finger without damage to nail, initial encounter (principal); I10 Essential (primary) hypertension; Z91.040 Latex allergy status; W23.0XXA Caught, crushed, jammed, or pinched between moving objects, initial encounter; Y93.89 Activity, other specified; Y92.89 Other specified places as the place of occurrence of the external cause; Y99.8 Other external cause status
CPT/HCPCS: 73140; 99283

== ENCOUNTER 2018-02-26 22:42 | Emergency (ER) | payer OTHER ==
[~2018-02-26 22:42] MED LIST changes: +ALBU2.5V8 INH; -PROAIR HFA8.5 GM INH
--- NOTE | 2018-02-26 23:05 | PHYS DOC ---
Past Medical History Past Medical History: Hypertension Past Surgical History: Additional Past Surgical Histo: 4 Alcohol Use: Rarely Drug Use: None Adult General HPI HPI 27-year-old female presents to ER via EMS for complaints of headache and "not feeling good". When this provider entered the room patient artery was speaking in a mild tone and not wanting to answer questions. Attempts to explain to patient that questioning needed to happen in order to provide her with care was met with patient cussing and her stating that she didn't want to "come to this fucking bitch" and that she will walk out of this ER and go to [facility] as she doesn't want to answer questions. Attempts to further explain that questioning was needed to obtain information on her sxs were again met with pt cussing at this provider with her sitting upright in her bed and reached toward this provider's face cussing and calling me a "bitch". Review of Systems Review of Systems Pt refused to answer questions for ROS Allergies Allergies Allergies Coded Allergies Type Severity Reaction Last Updated Verified latex Allergy Intermediate 10/10/15 Yes Physical Exam Physical Exam Constitutional: Well developed, well nourished, no acute distress, non-toxic appearance. Clear speech HENT: Pt had hair cap on- oropharynx moist Eyes: Pupils equal, no nystagmus, conjunctiva normal, no discharge. [] Neck: Normal range of motion, supple Cardiovascular: Heart rate tachycardic Lungs & Thorax: Resp. equal/nonlabored Back: Full ROM Extremities: Full ROM of upper extremities Neurologic: Alert and oriented X 3, normal motor function, normal sensory function, no focal deficits noted. [] Psychologic: Anxious and uncooperative Pt would not answer questions and with verbal assaults and reaching at this provider angrily and so attempts to have pt calm down so exam could be done were unsuccessful. Pt continued cussing and so exam could not be done. While pt was yelling/cussing she was moving upper extremities with full ROM. Pt was repositioning self in bed. Pt had full ROM of neck. Speech was clear and pt was able to articulate cuss words well. Pt had no slurred speech. EKG EKG [] Radiology/Procedures Radiology/Procedures [] Course & Med Decision Making Course & Med Decision Making Patient presented to the ER via EMS for complaints of headache and not feeling well. Patient was uncooperative during initial encounter with this provider not wanting to answer questions. Multiple attempts were made with patient to calm her down and he was advised and educated on the importance of this provider questioning her regarding her symptoms so that proper care could be provided. Patient interrupted multiple times as this discussion was attempting to be had with her with cuss words and verbal aggression. At one point patient sat up in the bed reaching toward this provider's face as needed. At that point this provider stated to the patient that her behavior would not be tolerated and that in order for further care and exam to occur she would need to calm down and not be so verbally aggressive. At that point patient stated she "didn't want to come to this 'fucking bitch" and that she wanted to go to [facility]. She stated she would leave this ER if she had to answer questions. Pt's behavior escalated with her yelling and cussing at which point security was called to room. Again attempts to calm pt were met with increased yelling at this provider. Pt was informed that with her verbal assaults and aggressive behavior would not be tolerated in the ER and that if she was not willing to calm down and provide insight into her sxs/medical hx and calmly talk with staff then she could leave the ER. With this being said pt continued cussing telling this provider to "get the fuck out of the room". Dr. Julian was informed of this incident and that security was called for escort of pt out of the ER d/t continued verbal insults/cussing. RN reported pt was able to ambulate in room unassisted and get dressed without assist with steady gait. Dragon Disclaimer Dragon Disclaimer This electronic medical record was generated, in whole or in part, using a voice recognition dictation system. Departure Departure Impression: Primary Impression: Headache Disposition: 01 LEFT WITHOUT BEING SEEN Condition: LEFT WITHOUT BEING SEEN Referrals: NO PCP (PCP) Attending Signature Attending Signature I have reviewed the PA/TECHNICAL SYSTEM ANALYST's note and plan of care. I was available for consultation as needed during the patient's visit in the emergency department. I agree with the clinical impression, plan, and disposition. Problem Qualifiers Primary Impression: Headache Headache type: unspecified Headache chronicity pattern: unspecified pattern YANG BENNETT APRN Feb 26, 2018 23:05 LETY JULIAN DO Feb 27, 2018 06:01
== END 2018-02-26 23:30 | disposition left against medical advice (07) ==
LOC: ER 22:42
DX: R51 Headache (principal); I10 Essential (primary) hypertension; Z53.21 Procedure and treatment not carried out due to patient leaving prior to being seen by health care provider
CPT/HCPCS: 99283

== ENCOUNTER 2018-10-15 09:22 | Emergency (ER) | payer MEDICAID, OTHER ==
[~2018-10-15] VITALS: Ht 165.1 cm; Wt 99.8 kg
[2018-10-15] MEDS ORDERED: IV NORMAL SALINE 1000ML BAG 1,000 ML IV ONE (09:45)
--- NOTE | 2018-10-15 09:56 | PHYS DOC ---
Past Medical History Past Medical History: Hypertension Past Surgical History: Additional Past Surgical Histo: 4 Alcohol Use: Rarely Drug Use: None Adult General Chief Complaint Chief Complaint: WEAKNESS/GENERALIZED HPI HPI Patient is a 28 year old female that presents with syncopal episode last night, weakness since yesterday. The patient denies any drug use or alcohol use last night the patient has history of hypertension has not been taking blood pressure medicine last 3 months. The patient denies any other complaints except she states she had a little bit of vaginal spotting states she thinks she might be starting her period. Denies any fever. Denies any pain. Review of Systems Review of Systems Constitutional: Denies fever or chills [] Eyes: Denies change in visual acuity, redness, or eye pain [] HENT: Denies nasal congestion or sore throat [] Respiratory: Denies cough or shortness of breath [] Cardiovascular: No additional information not addressed in HPI [] GI: Denies abdominal pain, nausea, vomiting, bloody stools or diarrhea [] : Denies dysuria or hematuria [] Musculoskeletal: Denies back pain or joint pain [] Integument: Denies rash or skin lesions [] Neurologic: Denies headache, focal weakness or sensory changes [] Endocrine: Denies polyuria or polydipsia [] Complete systems were reviewed and found to be within normal limits, except as documented in this note. Current Medications Current Medications Current Medications Medications (Trade) Dose Ordered Sig/Zaina Start Time Stop Time Status Last Admin Dose Admin Sodium Chloride 1,000 ml @ 1,000 mls/hr 1X ONCE 10/15/18 09:45 10/15/18 10:44 DC 10/15/18 10:14 1,000 MLS/HR Allergies Allergies Allergies Coded Allergies Type Severity Reaction Last Updated Verified latex Allergy Intermediate 10/10/15 Yes Physical Exam Physical Exam Constitutional: Well developed, well nourished, no acute distress, non-toxic appearance. [] HENT: Normocephalic, atraumatic, bilateral external ears normal, oropharynx moist, no oral exudates, nose normal. [] Eyes: PERRLA, EOMI, conjunctiva normal, no discharge. [] Neck: Normal range of motion, no tenderness, supple, no stridor. [] Cardiovascular:Heart rate regular rhythm, no murmur [] Lungs & Thorax: Bilateral breath sounds clear to auscultation [] Abdomen: Bowel sounds normal, soft, no tenderness, no masses, no pulsatile masses. [] Skin: Warm, dry, no erythema, no rash. [] Back: No tenderness, no CVA tenderness. [] Extremities: No tenderness, no cyanosis, no clubbing, ROM intact, no edema. [] Neurologic: Alert and oriented X 3, normal motor function, normal sensory function, no focal deficits noted. [] Psychologic: Affect normal, judgement normal, mood normal. [] Current Patient Data Vital Signs Vital Signs Date Time Temp Pulse Resp B/P (MAP) Pulse Ox O2 Delivery O2 Flow Rate FiO2 10/15/18 09:56 98.4 93 12 140/75 (96) 98 Room Air 98.4 Lab Values Laboratory Tests Test 10/15/18 09:43 10/15/18 09:53 Glucose (Fingerstick) 218 mg/dL (70-99) H White Blood Count 5.8 x10^3/uL (4.0-11.0) Red Blood Count 4.45 x10^6/uL (3.50-5.40) Hemoglobin 9.6 g/dL (12.0-15.5) L Hematocrit 31.2 % (36.0-47.0) L Mean Corpuscular Volume 70 fL (79-100) L Mean Corpuscular Hemoglobin 22 pg (25-35) L Mean Corpuscular Hemoglobin Concent 31 g/dL (31-37) Red Cell Distribution Width 19.3 % (11.5-14.5) H Platelet Count 424 x10^3/uL (140-400) H Neutrophils (%) (Auto) 56 % (31-73) Lymphocytes (%) (Auto) 33 % (24-48) Monocytes (%) (Auto) 6 % (0-9) Eosinophils (%) (Auto) 4 % (0-3) H Basophils (%) (Auto) 1 % (0-3) Neutrophils # (Auto) 3.2 x10^3/uL (1.8-7.7) Lymphocytes # (Auto) 1.9 x10^3/uL (1.0-4.8) Monocytes # (Auto) 0.3 x10^3/uL (0.0-1.1) Eosinophils # (Auto) 0.3 x10^3/uL (0.0-0.7) Basophils # (Auto) 0.0 x10^3/uL (0.0-0.2) Platelet Estimate Pending Sodium Level 142 mmol/L (136-145) Potassium Level 3.5 mmol/L (3.5-5.1) Chloride Level 106 mmol/L (98-107) Carbon Dioxide Level 27 mmol/L (21-32) Anion Gap 9 (6-14) Blood Urea Nitrogen 5 mg/dL (7-20) L Creatinine 1.2 mg/dL (0.6-1.0) H Estimated GFR (Cockcroft-Gault) 63.8 BUN/Creatinine Ratio 4 (6-20) L Glucose Level 200 mg/dL (70-99) H Calcium Level 8.7 mg/dL (8.5-10.1) Total Bilirubin 0.2 mg/dL (0.2-1.0) Aspartate Amino Transferase (AST) 17 U/L (15-37) Alanine Aminotransferase (ALT) 14 U/L (14-59) Alkaline Phosphatase 103 U/L (46-116) Troponin I Quantitative < 0.017 ng/mL (0.000-0.055) Total Protein 7.3 g/dL (6.4-8.2) Albumin 3.5 g/dL (3.4-5.0) Albumin/Globulin Ratio 0.9 (1.0-1.7) L Serum Test, Qualitative Negative (NEG) Laboratory Tests 10/15/18 09:53 Laboratory Tests 10/15/18 09:53 EKG EKG EKG interpreted by Dr. Wise Sinus with rate of 69. No STEMI.[] Radiology/Procedures Radiology/Procedures [] Course & Med Decision Making Course & Med Decision Making Pertinent Labs and Imaging studies reviewed. (See chart for details) Will get EKG, labs, and chest x-ray. Will also give fluids. The patient left against medical advice before results were back. The patient was advised of the risks of leaving including . The patient still chose to leave with this information. Dragon Disclaimer Dragon Disclaimer This electronic medical record was generated, in whole or in part, using a voice recognition dictation system. Departure Departure Impression: Primary Impression: Syncope Additional Impression: Left against medical advice Disposition: 07 AGAINST MEDICAL ADVICE Referrals: NO PCP (PCP) Problem Qualifiers Primary Impression: Syncope Syncope type: unspecified Qualified Codes: R55 - Syncope and collapse LETY DURAN APRN Oct 15, 2018 09:56
[2018-10-15 10:09] LABS: BASO % 1 % (0-3); EOS # 0.3 x10^3/uL (0.0-0.7); EOS % 4 % (0-3); HEMATOCRIT 31.2 % (36.0-47.0); HEMOGLOBIN 9.6 g/dL (12.0-15.5); LYMPH # 1.9 x10^3/uL (1.0-4.8); LYMPH % 33 % (24-48); MEAN CORPUSCULAR HEMOGLOBIN 22 pg (25-35); MEAN CORPUSCULAR HGB CONC 31 g/dL (31-37); MEAN CORPUSCULAR VOLUME 70 fL (79-100); MONO # 0.3 x10^3/uL (0.0-1.1); MONO % 6 % (0-9); NEUT # 3.2 x10^3/uL (1.8-7.7); NEUT % 56 % (31-73); PLATELET COUNT 424 x10^3/uL (140-400); RED BLOOD COUNT 4.45 x10^6/uL (3.50-5.40); RED CELL DISTRIBUTION WIDTH 19.3 % (11.5-14.5); WHITE BLOOD COUNT 5.8 x10^3/uL (4.0-11.0)
[2018-10-15 10:18] LABS: CALCIUM 8.7 mg/dL (8.5-10.1); CREATININE 1.2 mg/dL (0.6-1.0); GFR 63.8; POTASSIUM 3.5 mmol/L (3.5-5.1)
[2018-10-15 10:26] LABS: ALBUMIN 3.5 g/dL (3.4-5.0); ALBUMIN/GLOBULIN RATIO 0.9 (1.0-1.7); TOTAL BILIRUBIN 0.2 mg/dL (0.2-1.0); TOTAL PROTEIN 7.3 g/dL (6.4-8.2)
[2018-10-15 10:56] VITALS: BP 123/79
[2018-10-15 10:57] LABS: PREG TEST PT QUAL NEGATIVE (NEG)
--- NOTE | 2018-10-15 11:01 | RAD ---
PA and lateral chest radiographs 10/15/2018 CLINICAL HISTORY: Syncopal episode. PA and lateral digital radiographs of the chest were obtained. The cardiac and mediastinal silhouettes are within normal limits in size and configuration. Small nodular opacities are seen involving both lungs which likely represent granulomas. No acute pulmonary infiltrate is seen. No pleural effusion or pneumothorax is noted. Minimal degenerative changes are seen involving the thoracic spine. IMPRESSION: No acute abnormality is seen. Electronically signed by: Brandan Jones MD (10/15/2018 10:58 AM) [facility]
[2018-10-15 11:40] LABS: PLT ESTIMATE ADEQUATE (ADEQUATE)
[2018-10-15 11:51] LABS: ANISOCYTOSIS PRESENT; HYPOCHROMIA PRESENT; MICROCYTOSIS PRESENT; POIKILOCYTOSIS PRESENT; POLYCHROMASIA PRESENT
[2018-10-15 11:54] LABS: OVALOCYTES PRESENT; TARGET CELLS FEW
[2018-10-15 11:55] LABS: SPHEROCYTES OCC
--- NOTE | 2018-10-16 07:40 | EKG ---
[facility] [address] [place] [address] Test Date: 2018-10-15 Test Time: 10:13:07 Pat Name: RACHEL BUCKLEY Department: Room: Gender: F [employer]: : 1990 Requested By: LETY DURAN Order Number: [id number] Reading MD: Measurements Intervals [place] Rate: 69 P: 23 MD: 190 QRS: 17 QRSD: 98 T: -6 QT: 364 QTc: 391 Interpretive Statements SINUS RHYTHM NON SPECIFIC T ABNORMALITY BORDERLINE ECG No previous ECG available for comparison
== END 2018-10-15 15:15 | disposition left against medical advice (07) ==
LOC: ER 09:22
DX: R55 Syncope and collapse (principal); R53.1 Weakness; I10 Essential (primary) hypertension; Z98.890 Other specified postprocedural states; Z91.040 Latex allergy status
CPT/HCPCS: 36415; 71046; 80053; 82962; 84484; 84703; 85025; 93005; 96360; 99285; J7030

== ENCOUNTER 2019-12-25 09:01 | Emergency (ER) | payer MEDICAID ==
[~2019-12-25] VITALS: Ht 167.6 cm; Wt 105.0 kg
--- NOTE | 2019-12-25 09:40 | PHYS DOC ---
Past Medical History Past Medical History: Hypertension, Migraines Past Surgical History: , Tubal ligation Additional Past Surgical Histo: 4 Smoking Status: Current Every Day Smoker Alcohol Use: Rarely Drug Use: None General Adult EDM: Chief Complaint: HEADACHE HPI: HPI: Patient is a 29 year old female who presents with N/V/D, chills, and headache that started last night. Denies SOB and fever. Patient alternated taking Tylenol and Ibuprofen with no relief of pain. Review of Systems: Review of Systems: Constitutional: Denies fever. Reports chills. Eyes: Denies redness or eye pain HENT: Denies nasal congestion or sore throat Respiratory: Denies cough or shortness of breath Cardiovascular: Denies chest pain or palpitations GI: Reports abdominal pain, nausea, vomiting, diarrhea. : Denies dysuria or hematuria Musculoskeletal: Denies back pain or joint pain Integument: Denies rash or skin lesions Neurologic: Denies focal weakness or sensory changes. Reports headache Complete systems were reviewed and found to be within normal limits, except as documented in this note. Allergies: Allergies: Allergies Coded Allergies Type Severity Reaction Last Updated Verified latex Allergy Intermediate 10/10/15 Yes Physical Exam: PE: Constitutional: Well developed, well nourished, no acute distress, non-toxic appearance HENT: Normocephalic, atraumatic Eyes: Conjunctiva normal, no discharge Neck: Normal range of motion, no tenderness, supple Lungs & Thorax: No respiratory distress, equal chest rise and fall Abdomen: Reports tenderness Skin: Warm, dry, no erythema, no rash Back: No tenderness, no CVA tenderness Extremities: No tenderness, ROM intact, no edema Neurologic: Alert and oriented X 3, normal motor function, normal sensory function, no focal deficits noted Psychologic: Affect normal, judgment normal Current Patient Data: Labs: Laboratory Tests Test 12/25/19 09:31 POC Urine HCG, Qualitative Hcg negative (Negative) Vital Signs: Vital Signs Date Time Temp Pulse Resp B/P (MAP) Pulse Ox O2 Delivery O2 Flow Rate FiO2 12/25/19 09:32 98.1 91 16 143/66 (91) 97 Room Air 98.1 Course & Med Decision Making: Course & Med Decision Making Patient is a 29 year old female presenting with N/V/D, chills, and headache. Patient had abdominal tenderness. Labs and fluids ordered. Dragon Disclaimer: Dragon Disclaimer: This electronic medical record was generated, in whole or in part, using a voice recognition dictation system. Departure Departure Impression: Primary Impression: Epigastric abdominal pain Additional Impressions: Urinary tract infection Qualified Codes: N30.00 - Acute cystitis without hematuria Hypokalemia Headache Qualified Codes: R51.9 - Headache, unspecified Disposition: DC HOME SELF CARE/HOMELESS Condition: STABLE Referrals: NO PCP (PCP) Patient Instructions: Abdominal Pain, Ucfz-ob-Sdrs, Headache, FAQs, Hypokalemia, Potassium Content of Foods, Urinary Tract Infection, Ufrr-lo-Ocxm Scripts Butalb/Acetaminophen/Caffeine ([id number] 50-325-40) 1 Each Tablet 1 EACH PO Q6HRS PRN for HEADACHE, #10 TAB Prov: LETY JULIAN DO 12/25/19 Famotidine (PEPCID) 20 Mg Tablet 20 MG PO BID, #10 TAB Prov: LETY JULIAN DO 12/25/19 Ondansetron (ONDANSETRON ODT) 4 Mg Tab.rapdis 1 TAB PO PRN Q6-8HRS PRN for NAUSEA, #16 TAB Prov: LETY JULIAN DO 12/25/19 Cephalexin (KEFLEX) 500 Mg Capsule 500 MG PO TID for 7 Days, #21 CAP Prov: LETY JULIAN DO 12/25/19 LETY JULIAN DO Dec 25, 2019 09:40
[2019-12-25] MEDS ORDERED: KETOROLAC 15 MG/ML VIAL. IVP ONE (10:00)
[2019-12-25] MEDS ORDERED: ONDANSETRON PF 4 MG/2 ML VIAL. IVP ONE (10:00)
[2019-12-25] MEDS ORDERED: FAMOTIDINE 20 MG/2 ML VIAL IVP ONE (10:00)
[2019-12-25] MEDS ORDERED: IV NORMAL SALINE 1000ML BAG 1,000 ML IV ONE (10:00)
[2019-12-25 10:36] LABS: BILIRUBIN,URINE NEGATIVE (NEG); CLARITY,URINE CLOUDY; COLOR,URINE YELLOW; NITRITE,URINE POSITIVE (NEG); PROTEIN,URINE 30 mg/dL (NEG-TRACE)
[2019-12-25 10:46] LABS: CALCIUM 8.6 mg/dL (8.5-10.1); CREATININE 0.8 mg/dL (0.6-1.0); GFR 101.2; POTASSIUM 3.4 mmol/L (3.5-5.1)
[2019-12-25 10:52] LABS: ALBUMIN 3.8 g/dL (3.4-5.0); ALBUMIN/GLOBULIN RATIO 0.9 (1.0-1.7); TOTAL BILIRUBIN 0.4 mg/dL (0.2-1.0); TOTAL PROTEIN 7.9 g/dL (6.4-8.2)
[2019-12-25 11:01] LABS: BASO % 1 % (0-3); EOS # 0.1 x10^3/uL (0.0-0.7); EOS % 1 % (0-3); HEMOGLOBIN 9.7 g/dL (12.0-15.5); LYMPH # 1.5 x10^3/uL (1.0-4.8); LYMPH % 21 % (24-48); MEAN CORPUSCULAR HEMOGLOBIN 22 pg (25-35); MEAN CORPUSCULAR HGB CONC 31 g/dL (31-37); MEAN CORPUSCULAR VOLUME 71 fL (79-100); MONO # 0.6 x10^3/uL (0.0-1.1); MONO % 8 % (0-9); NEUT # 5.1 x10^3/uL (1.8-7.7); NEUT % 70 % (31-73); PLATELET COUNT 517 x10^3/uL (140-400); RED BLOOD COUNT 4.34 x10^6/uL (3.50-5.40); RED CELL DISTRIBUTION WIDTH 20.1 % (11.5-14.5); WHITE BLOOD COUNT 7.2 x10^3/uL (4.0-11.0)
[2019-12-25 11:02] LABS: BACTERIA,URINE MANY /HPF (0-FEW); RBC,URINE 0 /HPF (0-2); WBC,URINE 20-40 /HPF (0-4)
[2019-12-25] MEDS ORDERED: cefTRIAXone IV Push 1 GM VIAL. IVP ONE (11:30)
[2019-12-25] MEDS ORDERED: POTASSIUM CHLORIDE 20 MEQ TABLET.ER. PO ONE (11:30)
[2019-12-25] MEDS ORDERED: FAMO-63 PO (11:39)
[2019-12-25] MEDS ORDERED: ONDA4TAB12 PO (11:39)
[2019-12-25] MEDS ORDERED: CEPH-264 PO (11:39)
[2019-12-25] MEDS ORDERED: BUTA1TAB23 PO (11:39)
[2019-12-25 12:25] VITALS: BP 140/66
[2019-12-25 13:00] LABS: ANISOCYTOSIS MOD; HYPOCHROMIA MOD; MICROCYTOSIS MOD; PLT ESTIMATE INCREASED (ADEQUATE); TARGET CELLS FEW
== END 2019-12-25 12:15 | disposition home or self-care (01) ==
LOC: ER 09:01
DX: N30.00 Acute cystitis without hematuria (principal); G43.909 Migraine, unspecified, not intractable, without status migrainosus; R10.13 Epigastric pain; R11.2 Nausea with vomiting, unspecified; I10 Essential (primary) hypertension; F17.200 Nicotine dependence, unspecified, uncomplicated; Z98.890 Other specified postprocedural states; Z98.51 Tubal ligation status; Z91.040 Latex allergy status
CPT/HCPCS: 36415; 80053; 81001; 81025; 83690; 83735; 85025; 87086; 96361; 96374; 96375; 99284; J0696; J1885; J2405; J3490; J7030

== ENCOUNTER 2019-12-29 12:00 | Emergency (ER) | payer MEDICAID ==
[~2019-12-29] VITALS: Ht 167.6 cm; Wt 104.5 kg
[~2019-12-29 12:00] MED LIST changes: +BUTA1TAB23 PO; +FAMO-63 PO; +ONDA4TAB12 PO
--- NOTE | 2019-12-29 12:23 | PHYS DOC ---
Past Medical History Past Medical History: Hypertension, Migraines (COLLEEN LEA APRN) Past Surgical History: , Tubal ligation Additional Past Surgical Histo: 4 (COLLEEN LEA APRN) Smoking Status: Current Every Day Smoker Alcohol Use: Rarely Drug Use: None (COLLEEN LEA APRN) General Adult EDM: Chief Complaint: SEIZURE HPI: HPI: Patient is a 29 year old female who presents with was at home and states family says she had a seizure. Patient states that she takes labetalol and Ca rbamazipine but has not been taking it for 3 months. When I looked back in the patient's file I do not see anything about seizures or this medication. Patient states that she has headache, some blurred vision and she is tired. Patient rates her headache at a 7 out of 10. She has a history of migraines, smoker, hypertension, tubal ligation, seizure, gastritis, noncompliance. (COLLEEN LEA APRN) Review of Systems: Review of Systems: Constitutional: Denies fever or chills. [] Eyes: Denies change in visual acuity. + Blurred vision [] HENT: Denies nasal congestion or sore throat. [] Respiratory: Denies cough or shortness of breath. [] Cardiovascular: Denies chest pain or edema. [] GI: Denies abdominal pain, nausea, vomiting, bloody stools or diarrhea. [] : Denies dysuria. [] Musculoskeletal: Denies back pain or joint pain. [] Integument: Denies rash. [] Neurologic: + Seizure,+ headache, denies focal weakness or sensory changes. [] Endocrine: Denies polyuria or polydipsia. [] Lymphatic: Denies swollen glands. [] Psychiatric: Denies depression or anxiety. [] (COLLEEN LEA APRN) Heart Score: Risk Factors: Risk Factors: DM, Current or recent (<one month) smoker, HTN, HLP, family history of CAD, obesity. Risk Scores: Score 0 - 3: 2.5% MACE over next 6 weeks - Discharge Home Score 4 - 6: 20.3% MACE over next 6 weeks - Admit for Clinical Observation Score 7 - 10: 72.7% MACE over next 6 weeks - Early Invasive Strategies (COLLEEN LEA APRN) Allergies: Allergies: Allergies Coded Allergies Type Severity Reaction Last Updated Verified latex Allergy Intermediate 10/10/15 Yes (COLLEEN LEA APRN) Physical Exam: PE: Constitutional: Well developed, well nourished, no acute distress, non-toxic appearance. [] HENT: Normocephalic, atraumatic, bilateral external ears normal, oropharynx moist, no oral exudates, nose normal. [] Eyes: PERRLA, EOMI, conjunctiva normal, no discharge. [] Neck: Normal range of motion, no tenderness, supple, no stridor. [] Cardiovascular:Heart rate regular rhythm, no murmur [] Lungs & Thorax: Bilateral breath sounds clear to auscultation [] Abdomen: Bowel sounds normal, soft, no tenderness, no masses, no pulsatile masses. [] Skin: Warm, dry, no erythema, no rash. [] Back: No tenderness, no CVA tenderness. [] Extremities: No tenderness, no cyanosis, no clubbing, ROM intact, no edema. [] Neurologic: Alert and oriented X 3, normal motor function, normal sensory function, no focal deficits noted. [] Psychologic: Affect normal, judgement normal, mood normal. Normal physical exam [] (COLLEEN LEA APRN) EKG: EK and read by Dr Clay as Sinus Rhythm and no STEMI (COLLEEN LEA APRN) Radiology/Procedures: Radiology/Procedures: [] Impression: [facility] [address] [place] [address] IMAGING REPORT Signed PATIENT: RACHEL BUCKLEY ACCOUNT: [id number] : 1990 LOCATION: ER AGE: 29 SEX: F EXAM STATUS: REG ER ORD. PHYSICIAN: COLLEEN LEA APRN REASON: headache, dizzy, blurr vision, seizure PROCEDURE: CT HEAD WO CONTRAST CT head without contrast 12/29/2019. Reason for exam: Dizziness, headache and blurry vision. Seizure. Noncontrast images were performed. Exposure: One or more of the following individualized dose reduction techniques were utilized for this examination: 1. Automated exposure control 2. Adjustment of the mA and/or kV according to patient size 3. Use of iterative reconstruction technique. Comparison is made with an exam done on 03/05/2017. FINDINGS: There is no apparent intracranial mass, hemorrhage or abnormal extra-axial fluid collection. No new area of abnormal density is seen. The ventricles and basilar cisterns are normally positioned. The sinuses and mastoid air cells are clear. IMPRESSION: No apparent acute abnormality or change from the prior study. Electronically signed by: Dora Harrington Jr., MD (12/29/2019 2:43 PM) [id number] DICTATED and SIGNED BY: DORA HARRINGTON Jr, MD DATE: 12/29/19 [id number] (COLLEEN LEA APRN) Course & Med Decision Making: Course & Med Decision Making Pertinent Labs and Imaging studies reviewed. (See chart for details) See HPI. Speaks in full clear sentences. Is moving all extremities with equal and normal strength and movements. Skin pink warm and dry. Alert and oriented x4. Answers all questions appropriately. PERRLA. NIH is negative. Seizure precautions are started. Blood work unremarkable. Her lactic acid was 2.1. She did get a liter of fluids in the ED. She remains alert oriented. She is steady on her feet. Speaks in full complete sentences. I spoke to Dr. Avalos who states to start the patient on Keppra and she can follow-up with him as outpatient if she would like. Patient is given Keppra 500 mg in the ED and sent home with Keppra 500 mg p.o. twice daily. [] (COLLEEN LEA APRN) Rachanaon Disclaimer: Dragchrissie Disclaimer: This electronic medical record was generated, in whole or in part, using a voice recognition dictation system. (COLLEEN LEA APRN) NIHSS Stroke Scale NIH Stroke Scale: NIH Stroke Scale Response (Comments) Value Level of Consciousness: 0 Alert/Responsive 0 LOC Questions: 0 Answers both correctly 0 LOC Commands: 0 Performs both tasks 0 Best Gaze: 0 Normal 0 Visual: 0 No visual loss 0 Facial Palsy: 0 Normal, symmetrical 0 Motor - Left Arm 0 No drift 0 Motor - Right Arm 0 No drift 0 Motor - Left Leg 0 No drift 0 Motor: Right Leg 0 No drift 0 Limb Ataxia: 0 Absent 0 Sensory: 0 No loss 0 Best Language: 0 Normal 0 Dysathria: 0 Normal 0 Extinction and Inattention: 0 Normal 0 Total 0 Departure Departure Impression: Primary Impression: Seizure Additional Impression: Noncompliance Disposition: 01 DC HOME SELF CARE/HOMELESS Condition: STABLE Referrals: NO PCP (PCP) HANNAH MCKEON MD Patient Instructions: Seizure, Adult Additional Instructions: Take medication as prescribed. Follow-up with your primary care or a neurologist. I have referred you to Dr. Avalos here for your neurologist. Scripts Levetiracetam (KEPPRA) 500 Mg Tablet 1 TAB PO BID for 30 Days, #60 TAB 0 Refills Prov: COLLEEN LEA APRN 12/29/19 Attending Signature Attending Signature I have reviewed the non-physician practitioner's documentation, personally taken the patient's history, performed an exam and agree with the physical findings, clinical impression, and management plan. (ANAND CLAY DO) Attending Signature I have participated in the care of this patient and I have reviewed and agree with all pertinent clinical information above including history, exam, and recommendations. (COLLEEN LEA APRN) COLLEEN LEA APRN Dec 29, 2019 12:23 ANAND CLAY DO Dec 29, 2019 14:08
[2019-12-29] MEDS ORDERED: IV NORMAL SALINE 1000ML BAG 1,000 ML IV ONE (12:30)
[2019-12-29 12:46] LABS: BASO # 0.1 x10^3/uL (0.0-0.2); BASO % 1 % (0-3); EOS # 0.1 x10^3/uL (0.0-0.7); EOS % 1 % (0-3); HEMATOCRIT 32.3 % (36.0-47.0); HEMOGLOBIN 10.1 g/dL (12.0-15.5); LYMPH # 1.2 x10^3/uL (1.0-4.8); LYMPH % 12 % (24-48); MEAN CORPUSCULAR HEMOGLOBIN 23 pg (25-35); MEAN CORPUSCULAR HGB CONC 31 g/dL (31-37); MEAN CORPUSCULAR VOLUME 72 fL (79-100); MONO # 0.6 x10^3/uL (0.0-1.1); MONO % 6 % (0-9); NEUT # 8.5 x10^3/uL (1.8-7.7); NEUT % 81 % (31-73); PLATELET COUNT 361 x10^3/uL (140-400); RED BLOOD COUNT 4.47 x10^6/uL (3.50-5.40); WHITE BLOOD COUNT 10.6 x10^3/uL (4.0-11.0)
[2019-12-29 12:58] LABS: CALCIUM 8.9 mg/dL (8.5-10.1); GFR 78.2; POTASSIUM 3.2 mmol/L (3.5-5.1)
[2019-12-29 13:03] LABS: ALBUMIN 3.7 g/dL (3.4-5.0); ALBUMIN/GLOBULIN RATIO 0.9 (1.0-1.7); TOTAL BILIRUBIN 0.3 mg/dL (0.2-1.0); TOTAL PROTEIN 7.7 g/dL (6.4-8.2)
[2019-12-29 13:05] LABS: CARBAM < 0.5 mcg/mL (4.0-12.0)
[2019-12-29 14:11] LABS: BARBITURATES NEG (NEG); BENZODIAZEPINES NEG (NEG); CANNABINOIDS NEG (NEG); COCAINE NEG (NEG); METHADONE NEG (NEG); OPIATES NEG (NEG); PHENCYCLIDINE NEG (NEG)
[2019-12-29 14:12] LABS: AMPHETAMINE/METHAMPHETAMINE NEG (NEG)
[2019-12-29] MEDS ORDERED: ACETAMINOPHEN 500 MG TABLET PO ONE (14:15)
[2019-12-29 14:21] VITALS: BP 144/87
[2019-12-29 14:36] LABS: ANISOCYTOSIS SLIGHT; HYPOCHROMIA MOD; MICROCYTOSIS SLIGHT; OVALOCYTES FEW; PLT ESTIMATE ADEQUATE (ADEQUATE); POLYCHROMASIA SLIGHT
--- NOTE | 2019-12-29 14:46 | RAD ---
CT head without contrast 12/29/2019. Reason for exam: Dizziness, headache and blurry vision. Seizure. Noncontrast images were performed. Exposure: One or more of the following individualized dose reduction techniques were utilized for this examination: 1. Automated exposure control 2. Adjustment of the mA and/or kV according to patient size 3. Use of iterative reconstruction technique. Comparison is made with an exam done on 03/05/2017. FINDINGS: There is no apparent intracranial mass, hemorrhage or abnormal extra-axial fluid collection. No new area of abnormal density is seen. The ventricles and basilar cisterns are normally positioned. The sinuses and mastoid air cells are clear. IMPRESSION: No apparent acute abnormality or change from the prior study. Electronically signed by: Jamie Harrington Jr., MD (12/29/2019 2:43 PM) [id number]
[2019-12-29] MEDS ORDERED: LEVE500T56 PO (14:54)
--- NOTE | 2019-12-30 18:49 | EKG ---
[facility] [address] [place] [address] Test Date: 2019-12-29 Test Time: 12:31:45 Pat Name: RACHEL BUCKLEY Department: Room: Gender: F Rn On Site: : 1990 Requested By: COLLEEN LEA Order Number: [id number] Reading MD: Measurements Intervals [place] Rate: 87 P: 47 [place]: 170 QRS: 42 QRSD: 86 T: 0 QT: 358 QTc: 437 Interpretive Statements SINUS RHYTHM LEFT ATRIAL ABNORMALITY ABNORMAL ECG RI6.01 No previous ECG available for comparison
== END 2019-12-29 15:51 | disposition home or self-care (01) ==
LOC: ER 12:00
DX: R56.9 Unspecified convulsions (principal); Z91.19 Patient's noncompliance with other medical treatment and regimen; G43.909 Migraine, unspecified, not intractable, without status migrainosus; I10 Essential (primary) hypertension; F17.200 Nicotine dependence, unspecified, uncomplicated; Z98.51 Tubal ligation status; Z91.040 Latex allergy status
CPT/HCPCS: 36415; 70450; 80053; 80156; 80307; 81025; 83605; 85025; 93005; 96360; 99285; J7030

== ENCOUNTER 2020-02-20 19:30 | Emergency (ER) | payer MEDICAID ==
[~2020-02-20] VITALS: Ht 165.1 cm; Wt 81.8 kg
[~2020-02-20 19:30] MED LIST changes: +LEVE500T56 PO
[2020-02-20] MEDS ORDERED: ASPIRIN CHEWABLE 81 MG TABLET. PO ONE (19:45)
[2020-02-20] MEDS ORDERED: IV NORMAL SALINE 1000ML BAG 1,000 ML IV SCH (19:45)
[2020-02-20] MEDS ORDERED: METOPROLOL IV PUSH 5 MG/5 ML VIAL. IVP ONE (19:45)
[2020-02-20 19:53] LABS: BASO # 0.1 x10^3/uL (0.0-0.2); BASO % 1 % (0-3); EOS # 0.1 x10^3/uL (0.0-0.7); EOS % 1 % (0-3); HEMATOCRIT 31.6 % (36.0-47.0); HEMOGLOBIN 10.1 g/dL (12.0-15.5); LYMPH # 2.3 x10^3/uL (1.0-4.8); LYMPH % 22 % (24-48); MEAN CORPUSCULAR HEMOGLOBIN 23 pg (25-35); MEAN CORPUSCULAR HGB CONC 32 g/dL (31-37); MEAN CORPUSCULAR VOLUME 72 fL (79-100); MONO # 0.8 x10^3/uL (0.0-1.1); MONO % 8 % (0-9); NEUT # 7.2 x10^3/uL (1.8-7.7); NEUT % 69 % (31-73); PLATELET COUNT 496 x10^3/uL (140-400); RED BLOOD COUNT 4.42 x10^6/uL (3.50-5.40); RED CELL DISTRIBUTION WIDTH 20.6 % (11.5-14.5); WHITE BLOOD COUNT 10.5 x10^3/uL (4.0-11.0)
[2020-02-20 20:02] LABS: CREATININE 1.1 mg/dL (0.6-1.0); GFR 70.1; POTASSIUM 3.6 mmol/L (3.5-5.1)
--- NOTE | 2020-02-20 20:02 | PHYS DOC ---
Past Medical History Past Medical History: Hypertension, Migraines, Seizure Past Surgical History: , Tubal ligation Additional Past Surgical Histo: 4 Smoking Status: Current Every Day Smoker Alcohol Use: Rarely Drug Use: None General Adult EDM: Chief Complaint: RAPID HEART RATE HPI: HPI: Patient is a 29-year-old female presenting via EMS for seizure-like activity. Patient reports history of epilepsy and on Keppra daily, no changes in medication, no sick contacts or changes in health. Recently saw psychiatrist and was prescribed Ambien for sleep and took this for the first time this evening. Shortly after taking this new medication, family witnessed potential seizure-like activity which concerned them prompting them to call EMS. On arrival, patient was found to be hypertensive and tachycardic but otherwise AAO x3. Reports feeling tired, has feelings of palpitations and has pain to distal tip of pointer finger of left hand from crush injury accident that happened at work earlier today. No fever, COVID-19 contact, chest pain, shortness of breath, cough, abdominal pain, changes in bladder or bowel function, no motor or sensory function changes, no neurologic changes. States she has a primary care physician but has not seen them in months due to Covid, has been out of her 100 mg labetalol twice daily for "past few weeks" Review of Systems: Review of Systems: Fourteen body systems of review of systems have been reviewed. See HPI for pertinent positives and negative responses, other ramírez all other systems are negative, non-pertinent or non-contributory Heart Score: HEART Score for Chest Pain: HEART Score for Chest Pain Response (Comments) Value History Slighlty/Non-Suspicious 0 ECG Normal 0 Age < 45 0 Risk Factors 1 or 2 Risk Factors 1 Troponin < Normal Limit 0 Total 1 Risk Factors: Risk Factors: DM, Current or recent (<one month) smoker, HTN, HLP, family history of CAD, obesity. Risk Scores: Score 0 - 3: 2.5% MACE over next 6 weeks - Discharge Home Score 4 - 6: 20.3% MACE over next 6 weeks - Admit for Clinical Observation Score 7 - 10: 72.7% MACE over next 6 weeks - Early Invasive Strategies Current Medications: Current Medications Medications (Trade) Dose Ordered Sig/Zaina Start Time Stop Time Status Last Admin Dose Admin Aspirin (Aspirin Chewable) 324 mg 1X ONCE 02/20/20 19:45 1/13/21 19:46 DC 02/20/20 19:55 324 MG Metoprolol Tartrate (Lopressor Vial) 5 mg 1X ONCE 02/20/20 19:45 02/20/20 19:46 DC Sodium Chloride 1,000 ml @ 1,000 mls/hr Q1H 02/20/20 19:45 02/20/20 20:44 02/20/20 19:52 1,000 MLS/HR Allergies: Allergies: Allergies Coded Allergies Type Severity Reaction Last Updated Verified latex Allergy Intermediate 10/10/15 Yes Physical Exam: PE: Constitutional: Pt is oriented to person, place, and time. Pt appears well-developed and well- nourished. HEENT: Head: Normocephalic and atraumatic. TMs clear, no hemotympanum Conjunctivae and EOM are normal. Pupils are equal, round, and reactive to light. Oropharynx is clear and moist. No hematomas or lacerations or abrasions to face or scalp OP clear, no blood, no malocclusion, dentition intact Nares clear, no nasal septal hematoma Midface stable Neck: C-spine midline nontender, no step-offs Cardiovascular: Tachycardic, regular rhythm and normal heart sounds. Pulmonary/Chest: Effort normal and breath sounds normal. No respiratory distress. No wheezes. CTA bilaterally Abdominal: Soft. Bowel sounds are normal. Pt exhibits no distension. There is no tenderness. Musculoskeletal: No bony tenderness to extremities, no deformities, full ROM extremities Chest wall stable Pelvis stable and non-tender No vertebral TTP and spine without stepoffs Distal tip of left index finger tender to palpation without nailbed matrix involvement, cap refill intact less than 3 seconds, medial radial and ulnar nerves of bilateral upper extremities intact Neurological: Pt is alert and oriented to person, place, and time. Moving all extremities willfully, able to wiggle all fingers and toes Alert and oriented x 3 Sensation grossly intact Skin: Skin is warm and dry. No abrasions, no lacerations Psychiatric: Behavior is appropriate for situation Current Patient Data: Labs: Laboratory Tests Test 02/20/20 19:43 White Blood Count 10.5 x10^3/uL (4.0-11.0) Red Blood Count 4.42 x10^6/uL (3.50-5.40) Hemoglobin 10.1 g/dL (12.0-15.5) L Hematocrit 31.6 % (36.0-47.0) L Mean Corpuscular Volume 72 fL (79-100) L Mean Corpuscular Hemoglobin 23 pg (25-35) L Mean Corpuscular Hemoglobin Concent 32 g/dL (31-37) Red Cell Distribution Width 20.6 % (11.5-14.5) H Platelet Count 496 x10^3/uL (140-400) H Neutrophils (%) (Auto) 69 % (31-73) Lymphocytes (%) (Auto) 22 % (24-48) L Monocytes (%) (Auto) 8 % (0-9) Eosinophils (%) (Auto) 1 % (0-3) Basophils (%) (Auto) 1 % (0-3) Neutrophils # (Auto) 7.2 x10^3/uL (1.8-7.7) Lymphocytes # (Auto) 2.3 x10^3/uL (1.0-4.8) Monocytes # (Auto) 0.8 x10^3/uL (0.0-1.1) Eosinophils # (Auto) 0.1 x10^3/uL (0.0-0.7) Basophils # (Auto) 0.1 x10^3/uL (0.0-0.2) Platelet Estimate Pending Laboratory Tests 02/20/20 19:43 Vital Signs: Vital Signs Date Time Temp Pulse Resp B/P (MAP) Pulse Ox O2 Delivery O2 Flow Rate FiO2 02/20/20 19:50 138 20 100 02/20/20 19:30 98.0 187/130 (149) Room Air 98.0 EKG: EKG: EKG ordered and interpreted by myself at 1940 hrs. as sinus rhythm at 150 bpm, unremarkable intervals, no axis deviation, T wave inversions noted in leads III otherwise no acute ischemic findings, no STEMI Radiology/Procedures: Radiology/Procedures: XR HAND_LEFT 3 VIEWS History: Reason: left distal pointer figure trauma / Spl. Instructions: / History: Pain Technique: PA view the hand and 2 additional views of the second digit. Comparison: None. Findings: Normal alignment. No fracture. Second digit soft tissue swelling. Benign- appearing exostosis second distal phalanx. Impression: 1. No acute osseous abnormality. 2. Left second digit soft tissue swelling. Electronically signed by: Isidro Hernandez DO (02/20/2020 10:34 PM) [facility] XR CHEST 1V History: Reason: Short of breath UCG 8:15 9:10 / Spl. Instructions: / History: Comparison: October 15, 2018 Findings: No consolidation or pleural effusion. Normal heart size. No pneumothorax. Impression: 1. No acute cardiopulmonary process. Electronically signed by: Isidro Hernandez DO (02/20/2020 10:25 PM) [facility] Course & Med Decision Making: Course & Med Decision Making Airway patent, breathing unlabored, vitals remarkable for narrow complex regular tachycardia and hypertension IV access obtained. Comprehensive history, physical exam obtained. Subsequent diagnostic work-up pursued Patient responded to ER intervention that included IV Lopressor push and restarting home 100 mg labetalol Reviewed work-up in its entirety with patient. Discussed no emergent and/or surgical findings present. I discussed role of admission for continued observ ation but patient declined. Reports she would rather be discharged home and follow-up with her primary care provider and psychiatrist in outpatient setting I advised patient to continue taking antiepileptic medication as scheduled. I advised patient to discontinue Ambien until further notice when discussions can be had with patient psychiatrist. Supportive care advised for patient's left index finger contusion. Recommended she keep BP log for PCP review Strict return precautions were discussed with good understanding by patient, all questions and concerns addressed prior to ER departure Kemar Disclaimer: Kemar Disclaimer: This electronic medical record was generated, in whole or in part, using a voice recognition dictation system. Departure Departure Impression: Primary Impression: Seizure Additional Impressions: Tachycardia HTN (hypertension) Finger contusion Disposition: 01 DC HOME SELF CARE/HOMELESS Condition: IMPROVED Referrals: NO PCP (PCP) Patient Instructions: Form - Blood Pressure Record Sheet, Managing Your High Blood Pressure, Seizure, Adult Additional Instructions: It is unclear if you had a genuine seizure prior to arrival or not. You did try Ambien for the first time tonight which could have interacted poorly with your current medications and cause potential seizure-like activity. As discussed, comprehensive work-up was obtained, your physical exam was grossly nonconcerning. Your laboratory and radiographic work-up in our ER showed no emergent or surgical findings. Your heart rate was elevated in addition to your high blood pressure, you have been out of your medications and restarted on them in the ER setting with good improvement in both heart rate and blood pressure control. Please take newly prescribed labetalol 100 mg twice daily as previously instructed by your primary care physician. Please keep a blood pressure log for review when you visit patient in outpatient setting in upcoming 1 to 5 days t chuck. Please continue to take your daily seizure medications, you should follow up with your primary care physician and may need to see neurology if you continue to have poor seizure control. As discussed, you were admission to our hospital for observation given current events but you declined. Please ensure you call your primary care physician and psychiatrist first thing tomorrow morning to review ER visit today. Return to the ED if you develop increased seizures, more than one seizure in a row without returning to normal, seizure longer than 5 minutes, or any other new or concerning symptoms. You should not drive or operate machinery until you are cleared by a neurologist or your medicine doctor. It was a pleasure to take care of you today and I wish you the best going forward Scripts Labetalol Hcl (LABETALOL HCL) 100 Mg Tablet 1 TAB PO BID, #60 TAB 1 Refill Prov: IGNACIO LOPEZ DO 02/20/20 IGNACIO LOPEZ DO Feb 20, 2020 20:02
[2020-02-20 20:08] LABS: ALBUMIN 3.9 g/dL (3.4-5.0); MAGNESIUM 1.8 mg/dL (1.8-2.4); TOTAL BILIRUBIN 0.6 mg/dL (0.2-1.0); TOTAL PROTEIN 7.9 g/dL (6.4-8.2)
[2020-02-20 20:29] LABS: PLT ESTIMATE INCREASED (ADEQUATE)
[2020-02-20 20:30] LABS: ANISOCYTOSIS MOD; HYPOCHROMIA MOD; MICROCYTOSIS MOD; POIKILOCYTOSIS SLIGHT; POLYCHROMASIA PRESENT
[2020-02-20 20:31] LABS: OVALOCYTES FEW; STOMATOCYTES OCC; TEAR DROP CELLS OCC
[2020-02-20 20:34] LABS: SCHISTOCYTES OCC
[2020-02-20] MEDS ORDERED: LABETALOL HCL 100 MG TABLET. PO SCH (21:00)
[2020-02-20 21:14] LABS: BILIRUBIN,URINE NEGATIVE (NEG); CLARITY,URINE CLEAR; COLOR,URINE OTHER; NITRITE,URINE NEGATIVE (NEG); PROTEIN,URINE 30 mg/dL (NEG-TRACE)
[2020-02-20 21:20] LABS: BARBITURATES NEG (NEG); BENZODIAZEPINES NEG (NEG); CANNABINOIDS NEG (NEG); COCAINE NEG (NEG); METHADONE NEG (NEG); OPIATES NEG (NEG); PHENCYCLIDINE NEG (NEG)
[2020-02-20 21:22] LABS: AMPHETAMINE/METHAMPHETAMINE NEG (NEG)
[2020-02-20 21:30] LABS: BACTERIA,URINE FEW /HPF (0-FEW); RBC,URINE >40 /HPF (0-2)
[2020-02-20 21:33] LABS: U PREG PATIENT NEGATIVE (NEG)
[2020-02-20] MEDS ORDERED: ACETAMINOPHEN 325 MG TABLET. PO ONE (21:45)
--- NOTE | 2020-02-20 22:27 | RAD ---
XR CHEST 1V History: Reason: Short of breath UCG 8:15 9:10 / Spl. Instructions: / History: Comparison: October 15, 2018 Findings: No consolidation or pleural effusion. Normal heart size. No pneumothorax. Impression: 1. No acute cardiopulmonary process. Electronically signed by: Isidro Hernandez DO (02/20/2020 10:25 PM) [facility]
[2020-02-20 22:34] VITALS: BP 154/88
--- NOTE | 2020-02-20 22:37 | RAD ---
XR HAND_LEFT 3 VIEWS History: Reason: left distal pointer figure trauma / Spl. Instructions: / History: Pain Technique: PA view the hand and 2 additional views of the second digit. Comparison: None. Findings: Normal alignment. No fracture. Second digit soft tissue swelling. Benign-appearing exostosis second d istal phalanx. Impression: 1. No acute osseous abnormality. 2. Left second digit soft tissue swelling. Electronically signed by: Isidro Hernandez DO (02/20/2020 10:34 PM) [facility]
[2020-02-20] MEDS ORDERED: LABE100T5 PO (22:57)
== END 2020-02-20 23:05 | disposition home or self-care (01) ==
LOC: ER 19:30
DX: S60.022A Contusion of left index finger without damage to nail, initial encounter (principal); G40.909 Epilepsy, unspecified, not intractable, without status epilepticus; R00.0 Tachycardia, unspecified; I10 Essential (primary) hypertension; G43.909 Migraine, unspecified, not intractable, without status migrainosus; Z98.890 Other specified postprocedural states; Z98.51 Tubal ligation status; X58.XXXA Exposure to other specified factors, initial encounter; Y93.89 Activity, other specified; Y92.89 Other specified places as the place of occurrence of the external cause; Y99.8 Other external cause status
CPT/HCPCS: 36415; 71045; 73130; 80053; 80307; 81001; 81025; 83605; 83735; 83880; 84443; 84484; 85025; 87086; 93005; 96361; 96374; 99285; J3490; J7030

== ENCOUNTER 2020-02-29 16:07 | Emergency (ER) | payer MEDICAID ==
[~2020-02-29] VITALS: Ht 172.7 cm; Wt 103.1 kg
[~2020-02-29 16:07] MED LIST changes: +DOPamine 400MG/250ML PREMIX 400 MG/250 ML BAG IV ONE
[2020-02-29] MEDS: IV NORMAL SALINE 1000ML BAG 1,000 ML IV ONE (16:11)
[2020-02-29] MEDS: EPINEPHrine SYRINGE 1 MG/10 ML SYRINGE IV ONE (16:12)
[2020-02-29] MEDS: SODIUM BICARB ADULT 8.4% 50 MEQ/50 ML DISP.SYRIN. IV ONE (16:13)
[2020-02-29] MEDS: ATROPINE 0.5 MG/5 ML DISP.SYRINGE. IV ONE (16:20)
[2020-02-29] MEDS: NALOXONE 0.4 MG/ML VIAL. IV ONE (16:31)
[2020-02-29] MEDS: CALCIUM CHLORIDE 1,000 MG/10 ML DISP.SYRIN IV ONE (16:45)
[2020-02-29 16:46] VITALS: BP 177/113
--- NOTE | 2020-02-29 17:15 | PHYS DOC ---
Past Medical History Past Medical History: Hypertension, Migraines, Seizure Past Surgical History: , Tubal ligation Additional Past Surgical Histo: 4 Smoking Status: Current Every Day Smoker Alcohol Use: Rarely Drug Use: None General Adult EDM: Chief Complaint: CPR/FULL ARREST HPI: HPI: Patient is a 29 year old female who was found unresponsive at home today by her fianc at 3:30 PM. Her fianc said she was normal about 30 minutes prior. He left her to do something then went he came back, she was unresponsive. It was reported that he called 911 and started performing CPR. When EMS got there, patient was in PEA, was unresponsive, warm to the touch. They intubated her, gave her a total of 2 mg of naloxone because she had history of narcotic overdose in the past. She was not responsive. They gave her a total of 7 doses of epinephrine on route, total EMS resuscitation time was 26 minutes. Upon arrival to the ER, patient was in PEA. EMS was only able to place an IO in her right proximal leg. Review of Systems: Review of Systems: Unable to evaluate due to condition Heart Score: Risk Factors: Risk Factors: DM, Current or recent (<one month) smoker, HTN, HLP, family history of CAD, obesity. Risk Scores: Score 0 - 3: 2.5% MACE over next 6 weeks - Discharge Home Score 4 - 6: 20.3% MACE over next 6 weeks - Admit for Clinical Observation Score 7 - 10: 72.7% MACE over next 6 weeks - Early Invasive Strategies Allergies: Allergies: Allergies Coded Allergies Type Severity Reaction Last Updated Verified latex Allergy Intermediate 10/10/15 Yes Physical Exam: PE: Constitutional: Well developed, well nourished, comatose. [] HENT: Normocephalic, atraumatic, bilateral external ears normal, ET in place, dark blood inside oropharynx area , nose normal. [] Eyes: PUPILS WERE EQUAL, UNREACTIVE, ABOUT 4 MM EACH, conjunctiva normal, no discharge. [] Neck: Normal PASSIVE range of motion,NO CREPITUS, NO JVD. Cardiovascular: NO pulse Lungs & Thorax: Bilateral breath sounds equal to auscultation with mechanical ventilation. Abdomen: mild distention, no pulsatile mass. Skin: cyanotic, cold to the touch Back: atraumatic. Extremities:atraumatic. The I.O on right proximal leg appeared clogged. It was removed by this physician. Neurologic: unresponsive, comatose. Psychologic: not able to evaluate due to unresponsiveness. EKG: EKG: [] Radiology/Procedures: Radiology/Procedures: Indication: Vascular access Consent: emergency. Procedure: The patient was positioned appropriately and the skin over the right femoral vein was prepped and draped in a sterile fashion. Local anesthesia was not used. Ultrasound guidance was not utilized. A large bore needle was used to identify the vein. A guide wire was then inserted into the vein through the needle. A triple lumen catheter was then inserted into the vessel over the guide wire using the Seldinger technique. All ports showed good, free flowing blood return and were flushed with saline solution. The catheter was then securely fastened to the skin with mitchell,and covered with a sterile dressing. Complications: none. Course & Med Decision Making: Course & Med Decision Making Pertinent Labs and Imaging studies reviewed. (See chart for details) Patient is a 29-year-old female who was found unresponsive by her fianc, she was in PEA on scene, EMS resuscitated her for total 26 minutes, even arrival to ER via she was in PEA as well. The IO that placed by EMS on the right lower extremity appeared to be clotted. A peripheral IV was placed on left EJ by this physician, after several rounds resuscitation, with IV sodium bicarb , ROSC was achieved however she was very bradycardic, and unresponsive. Patient was given multiple rounds of atropine and IV fluid. Patient went into PEA. After a long resuscitation in the ER, patient was pronounced by this physician at 1650. This will be a dining services director case. Family was notified. The narcotic certified adapted physical educator was here Dragon Disclaimer: Kemar Disclaimer: This electronic medical record was generated, in whole or in part, using a voice recognition dictation system. Departure Departure Impression: Primary Impression: Cardiac arrest Disposition: 20 (AT 1650) Condition: Referrals: NO PCP (PCP) ALEX LYNNE DO Feb 29, 2020 17:14
[2020-02-29 17:19] LABS: BARBITURATES NEG (NEG); BENZODIAZEPINES NEG (NEG); CANNABINOIDS NEG (NEG); COCAINE NEG (NEG); METHADONE NEG (NEG); OPIATES NEG (NEG); PHENCYCLIDINE NEG (NEG)
[2020-02-29 17:20] LABS: AMPHETAMINE/METHAMPHETAMINE NEG (NEG)
[2020-02-29 17:34] LABS: ALBUMIN 2.3 g/dL (3.4-5.0); ALBUMIN/GLOBULIN RATIO 0.7 (1.0-1.7); CREATININE 1.7 mg/dL (0.6-1.0); GFR 42.4; MAGNESIUM 2.7 mg/dL (1.8-2.4); POTASSIUM 4.9 mmol/L (3.5-5.1); TOTAL BILIRUBIN 0.1 mg/dL (0.2-1.0); TOTAL PROTEIN 5.4 g/dL (6.4-8.2)
[2020-02-29 17:44] LABS: CALCIUM 21.2 mg/dL (8.5-10.1)
== END 2020-02-29 18:59 ==
LOC: ER 16:07
DX: I46.9 Cardiac arrest, cause unspecified (principal); I10 Essential (primary) hypertension; G43.909 Migraine, unspecified, not intractable, without status migrainosus; F17.200 Nicotine dependence, unspecified, uncomplicated; Z98.51 Tubal ligation status; Z98.890 Other specified postprocedural states; Z91.040 Latex allergy status
CPT/HCPCS: 31500; 36415; 76937; 80053; 80307; 82550; 83735; 92950; 96361; 96374; 96375; 99285; G0480; J0171; J0461; J1265; J2310; J3490; J7030